=== PATIENT | male | born 1980 | race African-American/Black ===

== ENCOUNTER → 2018-08-28 | Outpatient (CLI) | payer OTHER ==
[2018-08-28 17:09] LABS: Anisocytosis Slight; Basophils # (A) 0.1 k/uL (0-0.2); Basophils % (A) 1 %; Eosinophils # (A) 0.1 k/uL (0-0.7); Eosinophils % (A) 2 %; HCT 42.4 % (39.0-53.0); HGB 13.4 gm/dL (13.0-17.5); Hypochromasia Slight; Lymphocytes # (A) 1.8 k/uL (1.0-4.8); Lymphocytes % (A) 26 %; MCH 30.6 pg (25.0-35.0); MCHC 31.5 g/dL (31.0-37.0); MCV 96.9 fL (80.0-100.0); Mean Platelet Volume 9.4; Monocytes # (A) 0.5 k/uL (0-1.0); Monocytes % (A) 8 %; Neutrophils # (A) 4.2 k/uL (1.3-7.7); Neutrophils % (A) 61 %; Platelet Count 116 k/uL (150-450); RBC 4.38 m/uL (4.30-5.90); RDW 16.2 % (11.5-15.5); WBC 6.9 k/uL (3.8-10.6)
== END | disposition home or self-care (01) ==
LOC: LABWHC1 16:02
PROVIDERS: ATTEND Internal Medicine
DX: D50.9 Iron deficiency anemia, unspecified (principal)
CPT/HCPCS: 36415; 85025

== ENCOUNTER 2021-07-28 18:23 | Emergency (ER) | payer OTHER ==
[2021-07-28 18:35] VITALS: BP 97/56; PULSE 117; RESP 20; TEMP 98.6
--- NOTE | 2021-07-28 19:23 | ED ---
ENT HPI - General Chief complaint: ENT Stated complaint: Nose Bleed Time Seen by Provider: 07/28/21 19:22 Source: patient, EMS, RN notes reviewed Mode of arrival: EMS Limitations: no limitations - History of Present Illness Initial comments: Patient is a 41-year-old male presenting to the emergency Department via ems with complaints of a nosebleed going on for most the day. He denies any injuries or trauma. He denies being on blood thinners. He thinks it's because he has "been working out a lot and doing a lot of pushups." He does admit to drug use. Denies any fevers or chills, no cough or chest congestion no chest pain. Patient has no further complaints at this time. - Related Data Home Medications Medication Instructions Recorded Confirmed ALPRAZolam [Xanax] 1 mg PO TID 04/25/15 04/25/15 atenoloL 25 mg PO DAILY 04/25/15 04/25/15 Allergies Allergy/AdvReac Type Severity Reaction Status Date / Time No Known Allergies Allergy Verified 04/25/15 20:50 Review of Systems ROS Statement: Those systems with pertinent positive or pertinent negative responses have been documented in the HPI. ROS Other: All systems not noted in ROS Statement are negative. Past Medical History Past Medical History: Hypertension History of Any Multi-Drug Resistant Organisms: None Reported Past Surgical History: No Surgical Hx Reported Past Anesthesia/Blood Transfusion Reactions: No Reported Reaction Past Psychological History: Anxiety, Depression, Panic Disorder, PTSD Smoking Status: Current every day smoker Past Alcohol Use History: Daily, Heavy Past Drug Use History: Cocaine, Marijuana - Past Family History Father Family Medical History: Cancer, Diabetes Mellitus Additional Family Medical History / Comment(s): LUNG CANCER Mother Family Medical History: Hypertension Additional Family Medical History / Comment(s): ANXIEY AND PANIC ATTACKS General Exam - General Exam Comments Initial Comments: GENERAL: Patient is well-developed and well-nourished. Patient is nontoxic and in no acute distress. HEAD: Atraumatic, normocephalic. EYES: Pupils equal round and reactive to light, extraocular movements intact, sclera anicteric, conjunctiva are normal. Eyelids were unremarkable. ENT: Nares patent, oropharynx clear without exudates. Moist mucous membranes. No active nose bleed LUNGS: Unlabored respirations. Breath sounds clear to auscultation bilaterally and equal. No wheezes rales or rhonchi. HEART: Regular rate and rhythm without murmurs, rubs or gallops. MUSCULOSKELETAL: Normal extremities with adequate strength and normal range of motion, no pitting or edema. No clubbing or cyanosis. NEUROLOGICAL: Patient is alert and oriented x 3. SKIN: Warm, Dry, normal turgor, no rashes or lesions noted. Limitations: no limitations Course Vital Signs 07/28/21 18:32 Temperature 98.6 F Pulse Rate 117 H Respiratory 20 Rate Blood Pressure 97/56 O2 Sat by Pulse 96 Oximetry Medical Decision Making - Medical Decision Making Patient is a 41-year-old male here with a nosebleed since early this morning. No injuries or trauma. On exam, he has no active bleeding. Patient states it is fine and he wishes to go home. He is not on blood thinners. He is stable for discharge. I recommended placing Vaseline in his nostrils at nighttime for dryness. He is agreeable. Disposition Clinical Impression: Nosebleed Disposition: HOME SELF-CARE Condition: Stable Instructions (If sedation given, give patient instructions): Nosebleed (ED) Additional Instructions: Please return to the Emergency Department if symptoms worsen or any other concerns. Trial of Vaseline in the nostrils at nighttime for dryness. Is patient prescribed a controlled substance at d/c from ED?: No Referrals: Layton Walker MD [Primary Care Provider] - 1-2 days Time of Disposition: 19:23
[2021-07-29 07:32] LABS: Hepatitis B Surface Antigen Nonreactive (Nonreactive); Hepatitis C IgG Antibody Nonreactive (Nonreactive)
== END 2021-07-28 19:38 | disposition home or self-care (01) ==
LOC: EC 18:23
DX: R04.0 Epistaxis (principal); I10 Essential (primary) hypertension; F41.9 Anxiety disorder, unspecified; F32.9 Major depressive disorder, single episode, unspecified; F43.12 Post-traumatic stress disorder, chronic; F17.200 Nicotine dependence, unspecified, uncomplicated; F12.90 Cannabis use, unspecified, uncomplicated
CPT/HCPCS: 36415; 86701; 86704; 86803; 87340; 99283

== ENCOUNTER 2022-02-15 15:23 | Inpatient (IN) | payer OTHER ==
[2022-02-15] MEDS ORDERED: SODIUM CHLORIDE 0.9% 1,000 ML IV STA (15:51)
[2022-02-15] MEDS ORDERED: ONDANSETRON 4 MG/2 ML VIAL IVP STA (15:52)
[2022-02-15] MEDS ORDERED: KETOROLAC 15 MG/ML 1 ML VIAL IVP STA (15:52)
--- NOTE | 2022-02-15 16:21 | XR ---
EXAMINATION TYPE: XR chest 2V DATE OF EXAM: 02/15/2022 COMPARISON: Chest x-ray 01/01/2012 HISTORY: Difficulty breathing, tachycardia TECHNIQUE: Frontal and lateral views of the chest are obtained. FINDINGS: There is no focal air space opacity, pleural effusion, or pneumothorax seen. The cardiac silhouette size is within normal limits. The osseous structures are intact. IMPRESSION: No acute cardiopulmonary process.
--- NOTE | 2022-02-15 16:27 | ED ---
SOB HPI - General Chief Complaint: Shortness of Breath Stated Complaint: Dizziness, Heart racing Time Seen by Provider: 02/15/22 15:39 Source: patient, family, RN notes reviewed Mode of arrival: ambulatory Limitations: no limitations - History of Present Illness Initial Comments: This is a 41-year-old male who presents to the emergency department for vinay rtness of breath and hemoptysis. States that for the last 3 days, he has had shortness of breath, chest pain, nausea, vomiting, and diarrhea. The hemoptysis has been present since symptoms began 3 days ago. Also states that he feels overall very weak and has difficulty ambulating and standing up for long periods of time. He does state that he has chronic liver issues and and he "had his stomach pumped 3 months ago". He reports right upper quadrant pain, states that this isn't worse than usual. However, over the last 3 days he has noticed that the whites of his eyes have appeared more yellow than usual and his urine is much darker. - Related Data Home Medications Medication Instructions Recorded Confirmed Metoclopramide [Reglan] 10 mg PO QID PRN 02/15/22 02/15/22 amLODIPine [Norvasc] 5 mg PO DAILY 02/15/22 02/15/22 Allergies Allergy/AdvReac Type Severity Reaction Status Date / Time No Known Allergies Allergy Verified 02/15/22 22:24 Review of Systems ROS Statement: Those systems with pertinent positive or pertinent negative responses have been documented in the HPI. ROS Other: All systems not noted in ROS Statement are negative. Past Medical History Past Medical History: Hypertension History of Any Multi-Drug Resistant Organisms: None Reported Past Surgical History: No Surgical Hx Reported Past Anesthesia/Blood Transfusion Reactions: No Reported Reaction Past Psychological History: Anxiety, Depression, Panic Disorder, PTSD Smoking Status: Current every day smoker Past Alcohol Use History: Daily, Heavy Past Drug Use History: Cocaine, Marijuana - Past Family History Father Family Medical History: Cancer, Diabetes Mellitus Additional Family Medical History / Comment(s): LUNG CANCER Mother Family Medical History: Hypertension Additional Family Medical History / Comment(s): ANXIEY AND PANIC ATTACKS General Exam Limitations: no limitations General appearance: alert, in no apparent distress Head exam: Present: atraumatic, normocephalic, normal inspection Eye exam: Present: scleral icterus Respiratory exam: Present: normal lung sounds bilaterally. Absent: respiratory distress, wheezes, rales, rhonchi, stridor Cardiovascular Exam: Present: regular rate, normal rhythm, normal heart sounds. Absent: systolic murmur, diastolic murmur, rubs, gallop, clicks GI/Abdominal exam: Present: soft, normal bowel sounds. Absent: distended, tenderness, guarding, rebound, rigid Neurological exam: Present: alert, oriented X3, CN II-XII intact Psychiatric exam: Present: normal affect, normal mood Skin exam: Present: warm, dry, intact, normal color. Absent: rash Course Vital Signs 02/15/22 02/15/22 02/15/22 15:32 16:30 18:24 Temperature 98.6 F 98.6 F Pulse Rate 105 H 93 Respiratory 18 22 18 Rate Blood Pressure 148/83 141/86 O2 Sat by Pulse 98 98 Oximetry 02/15/22 22:46 Temperature 99.9 F H Pulse Rate 95 Respiratory 20 Rate Blood Pressure 136/72 O2 Sat by Pulse 95 Oximetry Medical Decision Making - Medical Decision Making This is a 41-year-old male who presents to the emergency department for hemoptysis, chest pain, shortness of breath, and weakness. Lab work demonstrated thrombocytopenia with platelets of 45. The most recent platelet value from our facility was 116 on 08/28/18. He also has elevated amylase, lipase, AST, and total bilirubin. Lactate is elevated at 2.1 and had increased to 2.3 when rechecked. D-dimer was also elevated at 0.65. CTA of the chest was obtained, this did not identify a pulmonary embolism or other acute process. Given his liver problems, the dark urine, abdominal pain, and scleral icterus, ultrasound of the gallbladder was obtained. This revealed hepatic steatosis with hepatomegaly. No gallbladder abnormalities were identified. I spoke with Dr. Alcantara regarding the patient, and he advised that I speak with medicine and asked if this patient should be admitted given the liver disease and low platelets suggesting an acute process. Medicine agreed to admission and requested pulmonary consult for hemoptysis. Dr. Ornelas will be consulted as well for the liver disease. This case was discussed in detail with the attending ED physician. Presentation, findings, and treatment plan discussed in detail as well. - Lab Data Result diagrams: 02/15/22 17:10 02/15/22 17:10 Lab Results 02/15/22 02/15/22 02/15/22 Range/Units 17:03 17:03 17:10 WBC 7.2 (3.8-10.6) k/uL RBC 3.56 L (4.30-5.90) m/uL Hgb 12.4 L (13.0-17.5) gm/dL Hct 37.8 L (39.0-53.0) % MCV 106.1 H (80.0-100.0) fL MCH 34.7 (25.0-35.0) pg MCHC 32.7 (31.0-37.0) g/dL RDW 15.4 (11.5-15.5) % Plt Count 45 L (150-450) k/uL MPV 11.4 Neutrophils % 60 % Lymphocytes % 25 % Monocytes % 9 % Eosinophils % 2 % Basophils % 1 % Neutrophils # 4.3 (1.3-7.7) k/uL Lymphocytes # 1.8 (1.0-4.8) k/uL Monocytes # 0.6 (0-1.0) k/uL Eosinophils # 0.2 (0-0.7) k/uL Basophils # 0.1 (0-0.2) k/uL Manual Slide Review Performed Macrocytosis Moderate D-Dimer (<0.60) mg/L FEU Sodium (137-145) mmol/L Potassium (3.5-5.1) mmol/L Chloride (98-107) mmol/L Carbon Dioxide (22-30) mmol/L Anion Gap mmol/L BUN (9-20) mg/dL Creatinine (0.66-1.25) mg/dL Est GFR (CKD-EPI)AfAm (>60 ml/min/1.73 sqM) Est GFR (CKD-EPI)NonAf (>60 ml/min/1.73 sqM) Glucose (74-99) mg/dL Lactic Ac Sepsis Rflx Plasma Lactic Acid Jay (0.7-2.0) mmol/L Calcium (8.4-10.2) mg/dL Total Bilirubin (0.2-1.3) mg/dL AST (17-59) U/L ALT (4-49) U/L Alkaline Phosphatase (38-126) U/L Troponin I (0.000-0.034) ng/mL Total Protein (6.3-8.2) g/dL Albumin (3.5-5.0) g/dL Amylase (30-110) U/L Lipase (23-300) U/L Coronavirus (PCR) Not Detected (Not Detectd) Influenza Type A RNA Not Detected (Not Detectd) Influenza Type B (PCR) Not Detected (Not Detectd) 02/15/22 02/15/22 02/15/22 Range/Units 17:10 17:10 17:10 WBC (3.8-10.6) k/uL RBC (4.30-5.90) m/uL Hgb (13.0-17.5) gm/dL Hct (39.0-53.0) % MCV (80.0-100.0) fL MCH (25.0-35.0) pg MCHC (31.0-37.0) g/dL RDW (11.5-15.5) % Plt Count (150-450) k/uL MPV Neutrophils % % Lymphocytes % % Monocytes % % Eosinophils % % Basophils % % Neutrophils # (1.3-7.7) k/uL Lymphocytes # (1.0-4.8) k/uL Monocytes # (0-1.0) k/uL Eosinophils # (0-0.7) k/uL Basophils # (0-0.2) k/uL Manual Slide Review Macrocytosis D-Dimer 0.65 H (<0.60) mg/L FEU Sodium 141 (137-145) mmol/L Potassium 3.8 (3.5-5.1) mmol/L Chloride 106 (98-107) mmol/L Carbon Dioxide 26 (22-30) mmol/L Anion Gap 9 mmol/L BUN 6 L (9-20) mg/dL Creatinine 0.75 (0.66-1.25) mg/dL Est GFR (CKD-EPI)AfAm >90 (>60 ml/min/1.73 sqM) Est GFR (CKD-EPI)NonAf >90 (>60 ml/min/1.73 sqM) Glucose 93 (74-99) mg/dL Lactic Ac Sepsis Rflx Plasma Lactic Acid Jay 2.1 H* (0.7-2.0) mmol/L Calcium 8.2 L (8.4-10.2) mg/dL Total Bilirubin 2.3 H (0.2-1.3) mg/dL AST 149 H (17-59) U/L ALT 43 (4-49) U/L Alkaline Phosphatase 109 (38-126) U/L Troponin I (0.000-0.034) ng/mL Total Protein 7.7 (6.3-8.2) g/dL Albumin 3.4 L (3.5-5.0) g/dL Amylase 206 H (30-110) U/L Lipase 359 H (23-300) U/L Coronavirus (PCR) (Not Detectd) Influenza Type A RNA (Not Detectd) Influenza Type B (PCR) (Not Detectd) 02/15/22 02/15/22 02/15/22 Range/Units 17:10 17:42 20:48 WBC (3.8-10.6) k/uL RBC (4.30-5.90) m/uL Hgb (13.0-17.5) gm/dL Hct (39.0-53.0) % MCV (80.0-100.0) fL MCH (25.0-35.0) pg MCHC (31.0-37.0) g/dL RDW (11.5-15.5) % Plt Count (150-450) k/uL MPV Neutrophils % % Lymphocytes % % Monocytes % % Eosinophils % % Basophils % % Neutrophils # (1.3-7.7) k/uL Lymphocytes # (1.0-4.8) k/uL Monocytes # (0-1.0) k/uL Eosinophils # (0-0.7) k/uL Basophils # (0-0.2) k/uL Manual Slide Review Macrocytosis D-Dimer (<0.60) mg/L FEU Sodium (137-145) mmol/L Potassium (3.5-5.1) mmol/L Chloride (98-107) mmol/L Carbon Dioxide (22-30) mmol/L Anion Gap mmol/L BUN (9-20) mg/dL Creatinine (0.66-1.25) mg/dL Est GFR (CKD-EPI)AfAm (>60 ml/min/1.73 sqM) Est GFR (CKD-EPI)NonAf (>60 ml/min/1.73 sqM) Glucose (74-99) mg/dL Lactic Ac Sepsis Rflx Y Plasma Lactic Acid Jay 2.3 H* (0.7-2.0) mmol/L Calcium (8.4-10.2) mg/dL Total Bilirubin (0.2-1.3) mg/dL AST (17-59) U/L ALT (4-49) U/L Alkaline Phosphatase (38-126) U/L Troponin I 0.021 (0.000-0.034) ng/mL Total Protein (6.3-8.2) g/dL Albumin (3.5-5.0) g/dL Amylase (30-110) U/L Lipase (23-300) U/L Coronavirus (PCR) (Not Detectd) Influenza Type A RNA (Not Detectd) Influenza Type B (PCR) (Not Detectd) - EKG Data EKG shows normal: sinus rhythm EKG Comments: Normal sinus rhythm. Ventricular rate 84 bpm, UT interval 178 ms, QRS duration 98 ms, QTC 432 ms. - Radiology Data Radiology results: report reviewed, image reviewed Disposition Clinical Impression: Hepatic steatosis, Hemoptysis, Thrombocytopenia Disposition: ADMITTED IP TO THIS HOSP
[2022-02-15 17:33] LABS: Basophils # (A) 0.1 k/uL (0-0.2); Basophils % (A) 1 %; Eosinophils # (A) 0.2 k/uL (0-0.7); Eosinophils % (A) 2 %; HCT 37.8 % (39.0-53.0); HGB 12.4 gm/dL (13.0-17.5); Lymphocytes # (A) 1.8 k/uL (1.0-4.8); Lymphocytes % (A) 25 %; MCH 34.7 pg (25.0-35.0); MCHC 32.7 g/dL (31.0-37.0); MCV 106.1 fL (80.0-100.0); Macrocytosis Moderate; Mean Platelet Volume 11.4; Monocytes # (A) 0.6 k/uL (0-1.0); Monocytes % (A) 9 %; Neutrophils # (A) 4.3 k/uL (1.3-7.7); Neutrophils % (A) 60 %; RBC 3.56 m/uL (4.30-5.90); RDW 15.4 % (11.5-15.5); WBC 7.2 k/uL (3.8-10.6)
[2022-02-15 17:38] LABS: ALT 43 U/L (4-49); AST 149 U/L (17-59); African American GFR (CKD) >90 (>60 ml/min/1.73 sqM); Albumin 3.4 g/dL (3.5-5.0); Alkaline Phosphatase 109 U/L (38-126); Amylase 206 U/L (30-110); Anion Gap 9 mmol/L; Blood Urea Nitrogen 6 mg/dL (9-20); Calcium 8.2 mg/dL (8.4-10.2); Carbon Dioxide 26 mmol/L (22-30); Chloride 106 mmol/L (98-107); Glucose 93 mg/dL (74-99); Lipase 359 U/L (23-300); Non-African American GFR(CKD) >90 (>60 ml/min/1.73 sqM); Potassium 3.8 mmol/L (3.5-5.1); Sodium 141 mmol/L (137-145); Total Bilirubin 2.3 mg/dL (0.2-1.3); Total Protein 7.7 g/dL (6.3-8.2)
[2022-02-15] MEDS ORDERED: LORazepam 2 MG/ML INJ IV STA (17:51)
[2022-02-15 18:05] LABS: Platelet Count 45 k/uL (150-450)
--- NOTE | 2022-02-15 19:14 | CT ---
EXAMINATION TYPE: CT chest angio for PE CT DLP: 427.1 mGycm, Automated exposure control for dose reduction was used. DATE OF EXAM: 02/15/2022 6:57 PM COMPARISON: None. CLINICAL INDICATION:Male, 41 years old with history of chest pain, shortness of breath, hemoptysis ; upper abdominal/chest pain TECHNIQUE/CONTRAST: CTA scan of the thorax is performed with IV Contrast, patient injected with 100 mL of Isovue 370, pul monary embolism protocol. MIP images are created and reviewed. FINDINGS: Motion limits evaluation. Pulmonary Artery: There is no evidence for a filling defect within the pulmonary vasculature to sugge st acute pulmonary embolism. The pulmonary artery is of normal size. Lungs/Pleura: No evidence of focal consolidation, pleural effusion or pneumothorax. Airway: Large airways are patent. Heart: Within normal limits for size.. Vasculature: No evidence of aortic aneurysm. Mediastinum: No gross evidence of adenopathy. Musculoskeletal: No acute osseous abnormalities Soft Tissues: Increased density posterior to the nipples bilaterally consistent with gynecomastia. Lower neck: No significant findings. Upper Abdomen: Diffuse low-attenuation to the liver parenchyma. IMPRESSION: 1. No evidence of central pulmonary embolism. Limited evaluation of the subsegmental branches. 2. Hepatic steatosis.
--- NOTE | 2022-02-15 21:03 | US ---
EXAMINATION TYPE: US gallbladder DATE OF EXAM: 02/15/2022 COMPARISON: NONE CLINICAL HISTORY: RUQ pain, scleral icterus . RUQ pain and jaundice EXAM MEASUREMENTS: Liver Length: 21.3 cm Gallbladder Wall: 0.27 cm CBD: 0.48 cm Right Kidney: 12.4 x 4.5 x 5.2 cm Pancreas: Tail obscured by overlying bowel gas Liver: Hepatomegaly with increased echotexture to the parenchyma. Gallbladder: No stones seen Evidence for sonographic Hightower's sign: No CBD: wnl Right Kidney: No hydronephrosis or masses seen IMPRESSION: Hepatic steatosis with hepatomegaly.
[2022-02-15] MEDS ORDERED: NALOXONE 0.4 MG/ML 1 ML VIAL IV PRN (22:11)
[2022-02-15] MEDS ORDERED: ACETAMINOPHEN TAB 325 MG TAB PO PRN (22:11)
[2022-02-15] MEDS ORDERED: ONDANSETRON 4 MG/2 ML VIAL IVP PRN (22:11)
[2022-02-15] MEDS ORDERED: HYDROmorphone 0.5 MG/0.5 ML SYRINGE IVP PRN (22:11)
[2022-02-15] MEDS ORDERED: LORazepam 2 MG/ML INJ IV PRN (22:11)
[2022-02-15] MEDS ORDERED: HYDROmorphone 1 MG/ML 1 ML SYRINGE IVP PRN (22:11)
[2022-02-15] MEDS: SODIUM CHLORIDE 0.9% 1,000 ML IV SCH (22:47)
[2022-02-15 23:22] LABS: Appearance,Urine Clear (Clear); Bilirubin,Urine Negative (Negative); Blood,Urine Negative (Negative); Color,Urine Yellow; Glucose,Urine (UA) Negative (Negative); Ketones,Urine Negative (Negative); Leukocyte Esterase,Urine Negative (Negative); Nitrite,Urine Negative (Negative); Protein,Urine Negative (Negative)
[2022-02-15 23:24] LABS: Specific Gravity,Urine >1.050 (1.001-1.035)
[2022-02-16] MEDS ORDERED: amLODIPine 5 MG TAB PO SCH (09:44)
[2022-02-16 11:42] LABS: Basophils % (A) 1 %; Eosinophils # (A) 0.1 k/uL (0-0.7); Eosinophils % (A) 1 %; HCT 40.4 % (39.0-53.0); HGB 12.8 gm/dL (13.0-17.5); Lymphocytes # (A) 1.2 k/uL (1.0-4.8); Lymphocytes % (A) 19 %; MCH 34.2 pg (25.0-35.0); MCHC 31.6 g/dL (31.0-37.0); MCV 108.3 fL (80.0-100.0); Macrocytosis Marked; Magnesium 1.5 mg/dL (1.6-2.3); Mean Platelet Volume 11.1; Monocytes # (A) 0.5 k/uL (0-1.0); Monocytes % (A) 7 %; Neutrophils # (A) 4.2 k/uL (1.3-7.7); Neutrophils % (A) 68 %; RBC 3.73 m/uL (4.30-5.90); RDW 15.3 % (11.5-15.5); WBC 6.1 k/uL (3.8-10.6)
[2022-02-16] MEDS ORDERED: Magnesium Replacement Protocol 1 EACH MISC MISCELLANE PRN (11:44)
[2022-02-16] MEDS ORDERED: LORazepam 2 MG/ML INJ IV PRN ×3 (11:45)
[2022-02-16] MEDS ORDERED: THIAMINE 100 MG/ML 2 ML VIAL IM STA (11:45)
[2022-02-16 11:54] LABS: Platelet Count 48 k/uL (150-450)
[2022-02-16 11:55] LABS: INR 1.5 (<1.2); Partial Thromboplastin Time 29.9 sec (22.0-30.0)
[2022-02-16] MEDS: HYDROcodone/APAP 5-325MG 1 EACH TAB PO PRN ×2 (12:32→18:14)
[2022-02-16] MEDS: MAGNESIUM SULFATE-D5W PMX 1 GM in DEXTROSE/WATER 1 100ML.BAG IVPB SCH ×2 (12:33→13:28)
[2022-02-16] MEDS: SODIUM CHLORIDE 0.9% 1,000 ML IV SCH (12:34)
[2022-02-16 13:32] LABS: Amphetamine Screen,Urine Not Detected (NotDetected); Barbiturate Screen,Urine Not Detected (NotDetected); Benzodiazepines Screen,Urine Detected (NotDetected); Cocaine Screen,Urine Not Detected (NotDetected); Methadone Screen, Urine Not Detected (NotDetected); Opiate Screen,Urine Detected (NotDetected); Oxycodone Screen, Urine Not Detected (NotDetected); Phencyclidine Screen,Urine Not Detected (NotDetected); Tricyclic Antidepressant,Urine Not Detected (NotDetected); Urn Cannabinoid Scrn Detected (NotDetected)
--- NOTE | 2022-02-16 14:37 | P.CONS ---
History of Present Illness - Reason for Consult Consult date: 02/16/22 Liver disease Requesting physician: Claudette David - Chief Complaint Cough, weakness, hemoptysis - History of Present Illness This is a pleasant 41-year-old -[place] male who presented to the emergency department with complaints of coughing up blood, shortness of breath, weakness and generalized fatigue. States That He's Been Having Symptoms for the Last 3 Days Duration. On admission He Had Blood Work Done That Was Consistent with the Elevated LFTs. He had a gallbladder ultrasound that showed hepatic state ptosis with hepatomegaly. Gastroenterology was consulted for liver disease. Patient also had elevated d-dimer and underwent a CT angiogram of the chest that was negative for pulmonary embolism. However did show hepatic state ptosis. Patient states he has no prior history of liver disease. He does have a long history of alcohol abuse. He currently cut back and states he is drinking 324 ounce beers a day. States that he was admitted to [facility] approximately 6 months ago with ascites and had a paracentesis at that time with approximately 2 L removed. He states he was discharged home on diuretics however did not follow-up. He states he does have some right upper quadrant pain. Still feels somewhat short of breath, very anxious and has a history of anxiety. WBC 6.1 hemoglobin 12.8 hematocrit 40 platelet count 48,000 INR 1.5 Total bilirubin 2.3 AsT 149 ALT 43 alkaline phosphatase 109 amylase 206 lipase 359 Review of Systems REVIEW OF SYSTEMS: CARDIOPULMONARY: No chest pain. Shortness of breath with coughing up blood 3 days. Gastrointestinal: Right upper quadrant abdominal pain. No nausea or vomiting. No hematemesis, coffee-ground emesis. No rectal bleeding, or melena. GENITOURINARY: No dysuria or hematuria. MUSCULOSKELETAL: Reports normal range of motion., Joint pain. SKIN: No rashes. No jaundice. ENDOCRINE: No chills, fevers. No excessive weight gain or loss. No polydipsia or polyuria. PSYCHIATRIC: Anxiety and depression. NEUROLOGY: No change in mental status. Denies dizziness, headache. ENT: Vision unremarkable. CONSTITUTIONAL: No recent weight loss. No fever, chills, night sweats. Past Medical History Past Medical History: GERD/Reflux, Hypertension, Liver Disease Additional Past Medical History / Comment(s): Pt states about 6 months ago he had a liver problem that caused ascities/had paracentesis, past fall with head injury/scalp bleed that caused acute blood loss anemia/transfused History of Any Multi-Drug Resistant Organisms: None Reported Past Surgical History: No Surgical Hx Reported Past Anesthesia/Blood Transfusion Reactions: No Reported Reaction Smoking Status: Current every day smoker - Past Family History Father Family Medical History: Cancer, Diabetes Mellitus Additional Family Medical History / Comment(s): LUNG CANCER. . Mother Family Medical History: Hypertension Additional Family Medical History / Comment(s): ANXIEY AND PANIC ATTACKS Medications and Allergies Home Medications Medication Instructions Recorded Confirmed Type Metoclopramide [Reglan] 10 mg PO QID PRN 02/15/22 02/15/22 History amLODIPine [Norvasc] 5 mg PO DAILY 02/15/22 02/15/22 History Allergies Allergy/AdvReac Type Severity Reaction Status Date / Time No Known Allergies Allergy Verified 02/15/22 22:24 Physical Exam Vitals: Vital Signs Temp Pulse Pulse Resp BP BP Pulse Ox 02/16/22 13:28 98.5 F 75 18 149/91 97 02/16/22 12:23 99.4 F 81 18 152/91 95 02/16/22 11:00 92 18 150/88 98 02/16/22 08:14 99.3 F 90 18 146/93 98 02/16/22 06:18 98.9 F 89 18 158/74 97 02/15/22 22:46 99.9 F H 95 20 136/72 95 02/15/22 18:24 98.6 F 93 18 141/86 98 02/15/22 16:30 22 02/15/22 15:32 98.6 F 105 H 18 148/83 98 Intake and Output 02/15/22 02/16/22 02/16/22 22:59 06:59 14:59 Intake Total 60 Balance 60 Intake: Oral 60 Other: # Voids 1 Weight 100.698 kg 100.698 kg General appearance: The patient is alert, oriented, appears in no acute distress. HET: Head is normocephalic and atraumatic. Conjunctiva pink. Sclera anicteric. Neck: Supple without lymphadenopathy. Trachea midline. Heart: S1 S2. Regular rate and rhythm. Lungs: Clear to auscultation. Abdomen: Soft, right-sided tenderness, hepatomegaly, nondistended with bowel sounds. No guarding or rigidity. Skin: No rashes. No jaundice. Extremities: Normal skin color and turgor. No pedal edema. Neurological: No focal deficits. Alert and oriented x3. Results CBC & Chem 7: 02/16/22 11:10 02/15/22 17:10 Labs: Abnormal Lab Results - Last 24 Hours (Table) 02/15/22 02/15/22 02/15/22 Range/Units 17:10 17:10 17:10 RBC 3.56 L (4.30-5.90) m/uL Hgb 12.4 L (13.0-17.5) gm/dL Hct 37.8 L (39.0-53.0) % MCV 106.1 H (80.0-100.0) fL Plt Count 45 L (150-450) k/uL Macrocytosis PT (9.0-12.0) sec INR (<1.2) D-Dimer 0.65 H (<0.60) mg/L FEU BUN 6 L (9-20) mg/dL Plasma Lactic Acid Jay (0.7-2.0) mmol/L Calcium 8.2 L (8.4-10.2) mg/dL Magnesium (1.6-2.3) mg/dL Total Bilirubin 2.3 H (0.2-1.3) mg/dL AST 149 H (17-59) U/L Albumin 3.4 L (3.5-5.0) g/dL Amylase 206 H (30-110) U/L Lipase 359 H (23-300) U/L Ur Specific [place] (1.001-1.035) Urine Opiates Screen (NotDetected) U Benzodiazepines Scrn (NotDetected) U Marijuana (THC) Screen (NotDetected) 02/15/22 02/15/22 02/15/22 Range/Units 17:10 20:48 23:00 RBC (4.30-5.90) m/uL Hgb (13.0-17.5) gm/dL Hct (39.0-53.0) % MCV (80.0-100.0) fL Plt Count (150-450) k/uL Macrocytosis PT (9.0-12.0) sec INR (<1.2) D-Dimer (<0.60) mg/L FEU BUN (9-20) mg/dL Plasma Lactic Acid Jay 2.1 H* 2.3 H* (0.7-2.0) mmol/L Calcium (8.4-10.2) mg/dL Magnesium (1.6-2.3) mg/dL Total Bilirubin (0.2-1.3) mg/dL AST (17-59) U/L Albumin (3.5-5.0) g/dL Amylase (30-110) U/L Lipase (23-300) U/L Ur Specific [place] >1.050 H (1.001-1.035) Urine Opiates Screen (NotDetected) U Benzodiazepines Scrn (NotDetected) U Marijuana (THC) Screen (NotDetected) 02/15/22 02/16/22 02/16/22 Range/Units 23:41 11:10 11:10 RBC 3.73 L (4.30-5.90) m/uL Hgb 12.8 L (13.0-17.5) gm/dL Hct (39.0-53.0) % MCV 108.3 H (80.0-100.0) fL Plt Count 48 L (150-450) k/uL Macrocytosis Marked A PT (9.0-12.0) sec INR (<1.2) D-Dimer (<0.60) mg/L FEU BUN (9-20) mg/dL Plasma Lactic Acid Jay 2.1 H* (0.7-2.0) mmol/L Calcium (8.4-10.2) mg/dL Magnesium 1.5 L (1.6-2.3) mg/dL Total Bilirubin (0.2-1.3) mg/dL AST (17-59) U/L Albumin (3.5-5.0) g/dL Amylase (30-110) U/L Lipase (23-300) U/L Ur Specific [place] (1.001-1.035) Urine Opiates Screen (NotDetected) U Benzodiazepines Scrn (NotDetected) U Marijuana (THC) Screen (NotDetected) 02/16/22 02/16/22 Range/Units 11:10 13:19 RBC (4.30-5.90) m/uL Hgb (13.0-17.5) gm/dL Hct (39.0-53.0) % MCV (80.0-100.0) fL Plt Count (150-450) k/uL Macrocytosis PT 15.0 H (9.0-12.0) sec INR 1.5 H (<1.2) D-Dimer (<0.60) mg/L FEU BUN (9-20) mg/dL Plasma Lactic Acid Jay (0.7-2.0) mmol/L Calcium (8.4-10.2) mg/dL Magnesium (1.6-2.3) mg/dL Total Bilirubin (0.2-1.3) mg/dL AST (17-59) U/L Albumin (3.5-5.0) g/dL Amylase (30-110) U/L Lipase (23-300) U/L Ur Specific [place] (1.001-1.035) Urine Opiates Screen Detected H (NotDetected) U Benzodiazepines Scrn Detected H (NotDetected) U Marijuana (THC) Screen Detected H (NotDetected) Comments: Gallbladder ultrasound: Hepatic state ptosis with hepatomegaly Chest CT angiogram: No evidence of central pulmonary embolism. Limited evaluation of subsegmental branches. Hepatic steatosis Assessment and Plan (1) Liver disease Narrative/Plan: A 11-year-old with a history of significant alcohol abuse for many years. States he has been trying to cut back and is down to approximately 324 ounce beers a day. Denies any previous history of known liver disease however does state that he was admitted to [facility] about 6 months ago and underwent a paracentesis with 2 L of fluid removed. He also states he was started on diuretics at that time however did not follow-up. He's had no further abdominal swelling. He was noted to have elevated LFTs consistent with alcoholic liver disease. We'll continue to monitor LFTs. Discussed with patient importance of alcohol abstinence. Current Visit: Yes Status: Acute Code(s): K76.9 - LIVER DISEASE, UNSPECIFIED SNOMED Code(s): 343001188 (2) Alcohol abuse Current Visit: Yes Status: Acute Code(s): F10.10 - ALCOHOL ABUSE, UNCOMPLICATED SNOMED Code(s): 69767843 (3) Hemoptysis Current Visit: Yes Status: Acute Code(s): R04.2 - HEMOPTYSIS SNOMED Code(s): 40361429 (4) Thrombocytopenia Narrative/Plan: Related to underlying liver disease Current Visit: Yes Status: Acute Code(s): D69.6 - THROMBOCYTOPENIA, UNSPECIFIED SNOMED Code(s): 870012682 Plan: 1. Continue symptomatic and supportive care 2. Close surveillance for withdrawal symptoms 3. Recommend alcohol abstinence 4. Recommend outpatient follow-up with gastroenterology 5. Repeat CMP Thank you for this consultation, we'll continue to follow. Dr. Mando Ornelas I agree with the dictator's note, documented as a scribe by Minal Medel.
[2022-02-16] MEDS ORDERED: amLODIPine 5 MG TAB PO STA (15:29)
--- NOTE | 2022-02-16 15:30 | P.HPIM ---
History of Present Illness H&P Date: 02/16/22 This is a 41 year old male who presents to the emergency room with complaints of shortness of breath and hemoptysis. This is ongoing for the last 2-3 days, he also reports nausea vomiting and diarrhea. Today he complains of right upper quadrant pain that is normal for him, however this is significant tenderness with palpation. He has also noted that his urine is darker than usual and the whites of his eyes appeared more yellow. Patient has chronic liver issues which states was diagnosed 6 months ago. He was evaluated by dr Keny Ornelas at [facility] where he underwent paracentesis and had about 2 L of fluid removed. He has not followed up with GI in the office. Additional medical history includes hy pertension, anxiety, depression, panic disorder, PTSD, is a daily smoker, history of chronic heavy binge drinking. States he drinks 4 24 oz beers per day as well as 4 shots or mixed drinks. States his last drink was yesterday morning. He has not been hospitalized for acute alcohol withdrawal before, however today he is feeling anxious and shaky, he is also slightly tachycardic. Covid, influenza A/B not detected. Patient does have a low grade fever of 99.9, heart rate 90, blood pressure 146/93, 98% on room air. Patient is in the hospital consults placed to pulmonary services for hemoptysis and GI services for evaluation of liver disease. He is started on CIWA protocol. Labs on admission showing white count 7.2, hemoglobin 12.4, MCV 106.1, platelet count is 45, d-dimer elevated 0.65. Lactic acid mildy elevated to 2.1 which is resolved now 1.9, troponin negative Total bili 2.3, AST 149, ALT 43, alk phos 19, amylase 206, lipase 359 Urinalysis with specific gravity of >1.050 EKG showing normal sinus rhythm there is no ST or T wave abnormalities noted, heart rate of 84, QT interval 432 Chest x-ray showing no acute process. Chest CTA showing no evidence of central pulmonary embolism, there is limited evaluation of the subsegmental branches, there is hepatic steatosis. Gallbladder ultrasound showed hepatic steatosis and hepatomegaly. No gallstones noted. REVIEW OF SYSTEMS: CONSTITUTIONAL: No fever, no malaise, no fatigue. HEENT: No recent visual problems or hearing problems. Denied any sore throat. CARDIOVASCULAR: No chest pain, orthopnea, PND, no palpitations, no syncope. PULMONARY: Reports coughing up blood, shortness of breath. GASTROINTESTINAL: Reports RUQ abdominal pain, reports nausea, vomiting, and diarrhea. No blood in the stool. NEUROLOGICAL: No headaches, no weakness, no numbness. HEMATOLOGICAL: Denies any bleeding or petechiae. GENITOURINARY: Denies any burning micturition, frequency, or urgency. MUSCULOSKELETAL/RHEUMATOLOGICAL: Denies any joint pain, swelling, or any muscle pain. ENDOCRINE: Denies any polyuria or polydipsia. The rest of the 14-point review of systems is negative. PHYSICAL EXAMINATION: GENERAL: The patient is alert and oriented x3, not in any acute distress. Well developed, well nourished. HEENT: Pupils are round and equally reacting to light. EOMI. No scleral icterus. No conjunctival pallor. Normocephalic, atraumatic. No pharyngeal erythema. No thyromegaly. CARDIOVASCULAR: S1 and S2 present. No murmurs, rubs, or gallops. PULMONARY: Chest is clear to auscultation, no wheezing or crackles. ABDOMEN: Soft, tender RUQ with guarding, nondistended, normoactive bowel sounds. No palpable organomegaly. MUSCULOSKELETAL: No joint swelling or deformity. EXTREMITIES: No cyanosis, clubbing, or pedal edema. NEUROLOGICAL: Gross neurological examination did not reveal any focal deficits. SKIN: No rashes. Assessment and plan Assessment Right upper quadrant abdominal pain with associated nausea, vomiting, diarrhea secondary to alcoholic liver disease Acute alcoholic hepatitis with elevated LFT's, Thrombocytopenia Hypomagnesemia Chronic alcohol abuse Hepatic steatosis Hypertension Anxiety History of PTSD Daily tobacco use DVT Prophylaxis deferred due to decreased platelet count GI Prophylaxis Full Code Plan GI consultation Monitor LFT's [facility] protocol Monitor for acute alcohol withdrawal Increase amlodipine Replace magnesium Urine drug toxicology The impression and plan of care has been dictated by Sally Doss Nurse Practitioner as directed. Dr. Rosemarie MD I have performed a history and physical examination and medical decision making of this patient, discussed the same with the dictator, and agree with the dictators assessment and plan as written, documented as a scribe. Based on total visit time, I have performed more than 50% of this visit. Past Medical History Past Medical History: Hypertension History of Any Multi-Drug Resistant Organisms: None Reported Past Surgical History: No Surgical Hx Reported Past Anesthesia/Blood Transfusion Reactions: No Reported Reaction Past Psychological History: Anxiety, Depression, Panic Disorder, PTSD Smoking Status: Current every day smoker Past Alcohol Use History: Daily, Heavy Past Drug Use History: Cocaine, Marijuana - Past Family History Father Family Medical History: Cancer, Diabetes Mellitus Additional Family Medical History / Comment(s): LUNG CANCER Mother Family Medical History: Hypertension Additional Family Medical History / Comment(s): ANXIEY AND PANIC ATTACKS Medications and Allergies Home Medications Medication Instructions Recorded Confirmed Type Metoclopramide [Reglan] 10 mg PO QID PRN 02/15/22 02/15/22 History amLODIPine [Norvasc] 5 mg PO DAILY 02/15/22 02/15/22 History Allergies Allergy/AdvReac Type Severity Reaction Status Date / Time No Known Allergies Allergy Verified 02/15/22 22:24 Physical Exam Vitals: Vital Signs Temp Pulse Resp BP Pulse Ox 02/16/22 08:14 99.3 F 90 18 146/93 98 02/16/22 06:18 98.9 F 89 18 158/74 97 02/15/22 22:46 99.9 F H 95 20 136/72 95 02/15/22 18:24 98.6 F 93 18 141/86 98 02/15/22 16:30 22 02/15/22 15:32 98.6 F 105 H 18 148/83 98 Intake and Output 02/15/22 02/16/22 02/16/22 22:59 06:59 14:59 Other: Weight 100.698 kg Results CBC & Chem 7: 02/16/22 11:10 02/15/22 17:10 Labs: Abnormal Lab Results - Last 24 Hours (Table) 02/15/22 02/15/22 02/15/22 Range/Units 17:10 17:10 17:10 RBC 3.56 L (4.30-5.90) m/uL Hgb 12.4 L (13.0-17.5) gm/dL Hct 37.8 L (39.0-53.0) % MCV 106.1 H (80.0-100.0) fL Plt Count 45 L (150-450) k/uL D-Dimer 0.65 H (<0.60) mg/L FEU BUN 6 L (9-20) mg/dL Plasma Lactic Acid Jay (0.7-2.0) mmol/L Calcium 8.2 L (8.4-10.2) mg/dL Total Bilirubin 2.3 H (0.2-1.3) mg/dL AST 149 H (17-59) U/L Albumin 3.4 L (3.5-5.0) g/dL Amylase 206 H (30-110) U/L Lipase 359 H (23-300) U/L Ur Specific [place] (1.001-1.035) 02/15/22 02/15/22 02/15/22 Range/Units 17:10 20:48 23:00 RBC (4.30-5.90) m/uL Hgb (13.0-17.5) gm/dL Hct (39.0-53.0) % MCV (80.0-100.0) fL Plt Count (150-450) k/uL D-Dimer (<0.60) mg/L FEU BUN (9-20) mg/dL Plasma Lactic Acid Jay 2.1 H* 2.3 H* (0.7-2.0) mmol/L Calcium (8.4-10.2) mg/dL Total Bilirubin (0.2-1.3) mg/dL AST (17-59) U/L Albumin (3.5-5.0) g/dL Amylase (30-110) U/L Lipase (23-300) U/L Ur Specific [place] >1.050 H (1.001-1.035) 02/15/22 Range/Units 23:41 RBC (4.30-5.90) m/uL Hgb (13.0-17.5) gm/dL Hct (39.0-53.0) % MCV (80.0-100.0) fL Plt Count (150-450) k/uL D-Dimer (<0.60) mg/L FEU BUN (9-20) mg/dL Plasma Lactic Acid Jay 2.1 H* (0.7-2.0) mmol/L Calcium (8.4-10.2) mg/dL Total Bilirubin (0.2-1.3) mg/dL AST (17-59) U/L Albumin (3.5-5.0) g/dL Amylase (30-110) U/L Lipase (23-300) U/L Ur Specific [place] (1.001-1.035) Assessment and Plan Time with Patient: Greater than 30
[2022-02-16] MEDS: THIAMINE 100 MG TAB PO SCH (18:14)
[2022-02-16] MEDS ORDERED: LORazepam 1 MG TAB PO STA (18:36)
--- NOTE | 2022-02-16 18:51 | P.CNPUL ---
History of Present Illness Consult date: 02/16/22 Reason for consult: dyspnea, cough Chief complaint: Hemoptysis for 3 days History of present illness: Patient is a 41-year-old male with extensive history of smoking and nicotine use patient also has extensive alcohol consumption with prior history of ascites requiring large volume paracentesis about 6 months ago at [facility]. Patient came into the hospital with 3 day history of shortness of breath cough and hemoptysis with [place] chunks of blood has been feeling very weak diffuse aches and pains throughout the bodies are present denies any chest pain denies any similar episode in the past prior history significant for hypertension. On arrival his lactic acid is mildly elevated of 2.1, PT/INR 15/1.9 white cell count is 6100 hemoglobin and hematocrit is 12 and 40 platelet count of only 48,000. Urine is positive for opiates benzodiazepine and marijuana. Magnesium is 1.5, chest x-ray is unremarkable no active cardiopulmonary process seen. Computed tomography scan of the chest with contr ast negative for pulmonary embolism no focal consolidation or pleural effusion pneumothorax in the airways are patent, patient noted to have gynecomastia on computed tomography scan. GI have evaluated the patient placed patient on IV Protonix Review of Systems All systems: negative Past Medical History Past Medical History: Hypertension Additional Past Medical History / Comment(s): Pt states about 6 months ago he had a liver problem that caused ascities/had paracentesis, past fall with head injury/scalp bleed that caused acute blood loss anemia/transfused History of Any Multi-Drug Resistant Organisms: None Reported Past Surgical History: No Surgical Hx Reported Past Anesthesia/Blood Transfusion Reactions: No Reported Reaction Past Psychological History: Anxiety, Depression, Panic Disorder, PTSD Smoking Status: Current every day smoker Past Alcohol Use History: Daily, Heavy Past Drug Use History: Cocaine, Marijuana - Past Family History Father Family Medical History: Cancer, Diabetes Mellitus Additional Family Medical History / Comment(s): LUNG CANCER Mother Family Medical History: Hypertension Additional Family Medical History / Comment(s): ANXIEY AND PANIC ATTACKS Medications and Allergies Home Medications Medication Instructions Recorded Confirmed Type Metoclopramide [Reglan] 10 mg PO QID PRN 02/15/22 02/15/22 History amLODIPine [Norvasc] 5 mg PO DAILY 02/15/22 02/15/22 History Allergies Allergy/AdvReac Type Severity Reaction Status Date / Time No Known Allergies Allergy Verified 02/15/22 22:24 Physical Exam Vitals: Vital Signs Temp Pulse Pulse Pulse Resp BP BP 02/16/22 15:00 98.8 F 84 18 152/81 02/16/22 13:28 98.5 F 75 18 149/91 02/16/22 12:23 99.4 F 81 18 152/91 02/16/22 11:00 92 18 150/88 02/16/22 08:14 99.3 F 90 18 146/93 02/16/22 06:18 98.9 F 89 18 158/74 02/15/22 22:46 99.9 F H 95 20 136/72 Pulse Ox 02/16/22 15:00 98 02/16/22 13:28 97 02/16/22 12:23 95 02/16/22 11:00 98 02/16/22 08:14 98 02/16/22 06:18 97 02/15/22 22:46 95 Intake and Output 02/16/22 02/16/22 02/16/22 06:59 14:59 22:59 Intake Total 178 Balance 178 Intake: Oral 178 Other: # Voids 1 2 Weight 100.698 kg - Constitutional General appearance: average body habitus, cooperative, disheveled - EENT Eyes: EOMI, PERRLA ENT: normal oropharynx Ears: bilateral: normal - Neck Carotids: bilateral: upstroke normal - Respiratory Respiratory: bilateral: CTA - Cardiovascular Rhythm: regular Heart sounds: normal: S1, S2 - Gastrointestinal General gastrointestinal: soft - Integumentary Integumentary: normal turgor - Neurologic Neurologic: CNII-XII intact - Musculoskeletal Musculoskeletal: gait normal, generalized weakness, strength equal bilaterally - Psychiatric Psychiatric: A&O x's 3, appropriate affect, intact judgment & insight Results - Laboratory Findings CBC and BMP: 02/16/22 11:10 02/15/22 17:10 PT/INR, D-dimer PT 15.0 sec (9.0-12.0) H 02/16/22 11:10 INR 1.5 (<1.2) H 02/16/22 11:10 D-Dimer 0.65 mg/L FEU (<0.60) H 02/15/22 17:10 Abnormal lab findings: Abnormal Labs 02/15/22 02/15/22 02/15/22 17:10 17:10 17:10 RBC 3.56 L Hgb 12.4 L Hct 37.8 L MCV 106.1 H Plt Count 45 L Macrocytosis PT INR D-Dimer 0.65 H BUN 6 L Plasma Lactic Acid Jay Calcium 8.2 L Magnesium Total Bilirubin 2.3 H AST 149 H Albumin 3.4 L Amylase 206 H Lipase 359 H Ur Specific [place] Urine Opiates Screen U Benzodiazepines Scrn U Marijuana (THC) Screen 02/15/22 02/15/22 02/15/22 17:10 20:48 23:00 RBC Hgb Hct MCV Plt Count Macrocytosis PT INR D-Dimer BUN Plasma Lactic Acid Jay 2.1 H* 2.3 H* Calcium Magnesium Total Bilirubin AST Albumin Amylase Lipase Ur Specific [place] >1.050 H Urine Opiates Screen U Benzodiazepines Scrn U Marijuana (THC) Screen 02/15/22 02/16/22 02/16/22 23:41 11:10 11:10 RBC 3.73 L Hgb 12.8 L Hct MCV 108.3 H Plt Count 48 L Macrocytosis Marked A PT INR D-Dimer BUN Plasma Lactic Acid Jay 2.1 H* Calcium Magnesium 1.5 L Total Bilirubin AST Albumin Amylase Lipase Ur Specific [place] Urine Opiates Screen U Benzodiazepines Scrn U Marijuana (THC) Screen 02/16/22 02/16/22 11:10 13:19 RBC Hgb Hct MCV Plt Count Macrocytosis PT 15.0 H INR 1.5 H D-Dimer BUN Plasma Lactic Acid Jay Calcium Magnesium Total Bilirubin AST Albumin Amylase Lipase Ur Specific [place] Urine Opiates Screen Detected H U Benzodiazepines Scrn Detected H U Marijuana (THC) Screen Detected H - Diagnostic Findings Chest x-ray: report reviewed, image reviewed (Finding as noted above) CT scan - chest: report reviewed, image reviewed Assessment and Plan Assessment: Hemoptysis versus hematemesis Chronic alcoholic liver disease Thrombocytopenia Extensive history of smoking and continue Extensive history of alcohol consumption Mild degree of coagulopathy appeared to be related to chronic liver disease Plan: We will repeat CBC tomorrow along with coag Keep patient nothing by mouth Bronchoscopy and airway inspection for tomorrow if no significant drop in thrombocytopenia or worsening of coagulopathy noted Patient and significant others updated and explained about the pathophysiology at length Time with Patient: Greater than 30
[2022-02-16] MEDS: PANTOPRAZOLE 40 MG/10 ML VIAL IVP SCH (19:28)
[2022-02-17] MEDS: HYDROcodone/APAP 5-325MG 1 EACH TAB PO PRN ×4 (01:10→21:16)
[2022-02-17] MEDS: SODIUM CHLORIDE 0.9% 1,000 ML IV SCH ×2 (02:04→10:40)
[2022-02-17] MEDS: PANTOPRAZOLE 40 MG/10 ML VIAL IVP SCH ×2 (08:14→21:16)
[2022-02-17] MEDS: THIAMINE 100 MG TAB PO SCH ×2 (08:16→16:49)
[2022-02-17] MEDS: amLODIPine 10 MG TAB PO SCH (08:16)
[2022-02-17 09:43] LABS: INR 1.33 (0.90-1.11); Prothrombin Time 14.8 sec (9.9-11.9)
[2022-02-17 10:26] LABS: African American GFR (CKD) 124.3 (60.0-200.0); Albumin 3.2 g/dL (3.8-4.9); Albumin/Globulin Ratio 0.86 (1.60-3.17); Anion Gap 8.5 mmol/L (10.00-18.00); Blood Urea Nitrogen 5.4 mg/dL (9.0-27.0); Calcium 8.5 mg/dL (8.7-10.3); Carbon Dioxide 25.5 mmol/L (20.0-27.5); Globulin 3.7 g/dL (1.6-3.3); Non-African American GFR(CKD) 107.2 (60.0-200.0); Potassium 3.5 mmol/L (3.5-5.5); Total Bilirubin 2.2 mg/dL (0.30-1.20); Total Protein 6.9 g/dL (6.2-8.2)
[2022-02-17 11:24] LABS: HCT 39.4 % (39.6-50.0); HGB 12.4 g/dL (13.0-17.0); MCH 33.6 pg (27.0-32.0); MCHC 31.5 g/dL (32.0-37.0); MCV 106.8 fL (80.0-97.0); Mean Platelet Volume 13.8 fL (9.5-12.2); NRBC Per 100 WBC 0.3 /100 WBCS (0.0-0.0); Platelet Count 39 X 10*3/uL (140-440); RBC 3.69 X 10*6/uL (4.40-5.60); RDW 15.6 % (11.5-14.5); WBC 6.59 X 10*3/uL (4.50-10.00)
[2022-02-17 11:42] LABS: Basophils # (A) 0.05 X 10*3/uL (0.00-0.10); Basophils % (A) 0.8 %; Eosinophils # (A) 0.19 X 10*3/uL (0.04-0.35); Eosinophils % (A) 2.9 %; Immature Grans, Automated 0.3 %; Immature Platelet Fraction 12.7 % (1.1-6.1); Lymphocytes # (A) 1.28 X 10*3/uL (0.90-5.00); Lymphocytes % (A) 19.4 %; Monocytes % (A) 16.7 %; Neutrophils # (A) 3.95 X 10*3/uL (1.80-7.70); Neutrophils % (A) 59.9 %
--- NOTE | 2022-02-17 13:29 | P.PN ---
Subjective Progress Note Date: 02/17/22 Principal diagnosis: Alcoholic Liver disease Patient is a 41-year-old male who presented to the emergency department with complaints of shortness of breath and cough. He was noted to have elevated LFTs. Underwent ultrasound of the gallbladder with findings of hepatic steatosis with hepatomegaly. Patient has a significant history of alcohol abuse. He was seen and examined today. States cough is somewhat better. No further coughing up blood. Patient supposed to undergo bronchoscopy possibly today if platelets stable. Repeat labs today show WBC 6.5 hemoglobin 12.4 hem atocrit 39 platelet count 39,000 INR 1.3 total bilirubin 2.2 AST 95 ALT 34 alk phos 104 lipase 67. Patient states he still has some right-sided abdominal discomfort. No nausea or vomiting. Objective - Vital Signs Vital signs: Vital Signs Temp 98.4 F 02/17/22 07:00 Pulse 83 02/17/22 07:00 Resp 18 02/17/22 08:50 BP 156/83 02/17/22 07:00 Pulse Ox 100 02/17/22 07:00 Intake & Output 02/16/22 02/17/22 02/17/22 18:59 06:59 18:59 Intake Total 178 Output Total 200 -22 Weight 100.698 kg Intake: Oral 178 Output: Urine 200 Other: # Voids 2 2 - Exam General appearance: The patient is alert, oriented, appears in no acute distress. HET: Head is normocephalic and atraumatic. Conjunctiva pink. Sclera anicteric. Neck: Supple without lymphadenopathy. Abdomen: Soft, right-sided tenderness, hepatomegaly, nondistended with bowel sounds. No guarding or rigidity. Extremities: Normal skin color and turgor. No pedal edema Skin: No rashes, no jaundice Neurological: No focal deficits. Alert and oriented x3. - Labs CBC & Chem 7: 02/17/22 06:00 02/17/22 06:00 Labs: Abnormal Lab Results - Last 24 Hours (Table) 02/16/22 02/16/22 02/17/22 Range/Units 11:10 13:19 06:00 RBC (4.40-5.60) X 10*6/uL Hgb (13.0-17.0) g/dL Hct (39.6-50.0) % MCV (80.0-97.0) fL MCH (27.0-32.0) pg MCHC (32.0-37.0) g/dL RDW (11.5-14.5) % Plt Count (140-440) X 10*3/uL Plt Count Comment MPV (9.5-12.2) fL Absolute Nucleated RBC (0.00-0.00) X 10*3/uL Monocytes # (0.20-1.00) X 10*3/uL NRBC/100 WBC Diff (0.0-0.0) /100 WBCS Immature Plt Fraction (1.1-6.1) % PT (9.9-11.9) sec INR (0.90-1.11) Anion Gap 8.50 L (10.00-18.00) mmol/L BUN 5.4 L (9.0-27.0) mg/dL BUN/Creatinine Ratio 6.00 L (12.00-20.00) Ratio Calcium 8.5 L (8.7-10.3) mg/dL Total Bilirubin 2.20 H (0.30-1.20) mg/dL AST 95 H (14-35) U/L Albumin 3.2 L (3.8-4.9) g/dL Globulin 3.7 H (1.6-3.3) g/dL Albumin/Globulin Ratio 0.86 L (1.60-3.17) g/dL Lipase 67 H (14-60) U/L Vitamin B12 1406.0 H (200.0-944.0) pg/mL Urine Opiates Screen Detected H (NotDetected) U Benzodiazepines Scrn Detected H (NotDetected) U Marijuana (THC) Screen Detected H (NotDetected) 02/17/22 02/17/22 Range/Units 06:00 06:00 RBC 3.69 L (4.40-5.60) X 10*6/uL Hgb 12.4 L (13.0-17.0) g/dL Hct 39.4 L (39.6-50.0) % MCV 106.8 H (80.0-97.0) fL MCH 33.6 H (27.0-32.0) pg MCHC 31.5 L (32.0-37.0) g/dL RDW 15.6 H (11.5-14.5) % Plt Count 39 L (140-440) X 10*3/uL Plt Count Comment A MPV 13.8 H (9.5-12.2) fL Absolute Nucleated RBC 0.02 H (0.00-0.00) X 10*3/uL Monocytes # 1.10 H (0.20-1.00) X 10*3/uL NRBC/100 WBC Diff 0.3 H (0.0-0.0) /100 WBCS Immature Plt Fraction 12.7 H (1.1-6.1) % PT 14.8 H (9.9-11.9) sec INR 1.33 H (0.90-1.11) Anion Gap (10.00-18.00) mmol/L BUN (9.0-27.0) mg/dL BUN/Creatinine Ratio (12.00-20.00) Ratio Calcium (8.7-10.3) mg/dL Total Bilirubin (0.30-1.20) mg/dL AST (14-35) U/L Albumin (3.8-4.9) g/dL Globulin (1.6-3.3) g/dL Albumin/Globulin Ratio (1.60-3.17) g/dL Lipase (14-60) U/L Vitamin B12 (200.0-944.0) pg/mL Urine Opiates Screen (NotDetected) U Benzodiazepines Scrn (NotDetected) U Marijuana (THC) Screen (NotDetected) Assessment and Plan (1) Liver disease Narrative/Plan: A 11-year-old with a history of significant alcohol abuse for many years. States he has been trying to cut back and is down to approximately 324 ounce beers a day. Denies any previous history of known liver disease however does state that he was admitted to [facility] about 6 months ago and underwent a paracentesis with 2 L of fluid removed. He also states he was started on diuretics at that time however did not follow-up. He's had no further abdominal swelling. He was noted to have elevated LFTs consistent with alcoholic liver disease. We'll continue to monitor LFTs. Discussed with patient importance of alcohol abstinence. Current Visit: Yes Status: Acute Code(s): K76.9 - LIVER DISEASE, UNSPECIFIED SNOMED Code(s): 287870535 (2) Alcohol abuse Current Visit: Yes Status: Acute Code(s): F10.10 - ALCOHOL ABUSE, UNCOMPLICATED SNOMED Code(s): 51521612 (3) Hemoptysis Current Visit: Yes Status: Acute Code(s): R04.2 - HEMOPTYSIS SNOMED Code(s): 08956300 (4) Thrombocytopenia Narrative/Plan: Related to underlying liver disease. platelets ordered Current Visit: Yes Status: Acute Code(s): D69.6 - THROMBOCYTOPENIA, UNSPECIFIED SNOMED Code(s): 160636440 Plan: 1. Continue symptomatic and supportive care 2. Close surveillance for withdrawal symptoms 3. Recommend alcohol abstinence 4. Recommend outpatient follow-up with gastroenterology 5. CBC, CMP daily 6. Agree with platelet transfusion Thank you for this consultation, we'll continue to follow. Dr. Mando Ornelas I agree with the dictator's note, documented as a scribe by Minal Medel.
--- NOTE | 2022-02-17 14:39 | P.PN ---
Subjective Progress Note Date: 02/17/22 Principal diagnosis: Hemoptysis versus hematemesis Chronic alcoholic liver disease Thrombocytopenia Extensive history of smoking and continue Extensive history of alcohol consumption Mild degree of coagulopathy appeared to be related to chronic liver disease 02/17/2022, patient seen eval reexamined during on's labs reviewed medications in reviewed, no active hemoptysis has been noted however patient is cuffing brownish sputum to white sputum, patient INR improved but however platelet drop down to 39,000, transfusion and platelet not available procedure of bronchoscopy have been canceled, will do the platelet transfusion repeat platelet levels tomorrow anticipated bronchoscopy on Tuesday Patient is a 41-year-old male with extensive history of smoking and nicotine use patient also has extensive alcohol consumption with prior history of ascites requiring large volume paracentesis about 6 months ago at [facility]. Patient came into the hospital with 3 day history of shortness of breath cough and hemoptysis with [place] chunks of blood has been feeling very weak diffuse aches and pains throughout the bodies are present denies any chest pain denies any similar episode in the past prior history significant for hypertension. On arrival his lactic acid is mildly elevated of 2.1, PT/INR 15/1.9 white cell count is 6100 hemoglobin and hematocrit is 12 and 40 platelet count of only 48,000. Urine is positive for opiates benzodiazepine and marijuan a. Magnesium is 1.5, chest x-ray is unremarkable no active cardiopulmonary process seen. Computed tomography scan of the chest with contrast negative for pulmonary embolism no focal consolidation or pleural effusion pneumothorax in the airways are patent, patient noted to have gynecomastia on computed tomography scan. GI have evaluated the patient placed patient on IV Protonix Objective - Vital Signs Vital signs: Vital Signs Temp 98.4 F 02/17/22 07:00 Pulse 83 02/17/22 07:00 Resp 18 02/17/22 08:50 BP 156/83 02/17/22 07:00 Pulse Ox 100 02/17/22 07:00 Intake & Output 02/16/22 02/17/22 02/17/22 18:59 06:59 18:59 Intake Total 178 Output Total 200 -22 Weight 100.698 kg Intake: Oral 178 Output: Urine 200 Other: # Voids 2 2 - Exam - Constitutional General appearance: average body habitus, cooperative, disheveled - EENT Eyes: EOMI, PERRLA ENT: normal oropharynx Ears: bilateral: normal - Neck Carotids: bilateral: upstroke normal - Respiratory Respiratory: bilateral: CTA - Cardiovascular Rhythm: regular Heart sounds: normal: S1, S2 - Gastrointestinal General gastrointestinal: soft - Integumentary Integumentary: normal turgor - Neurologic Neurologic: CNII-XII intact - Musculoskeletal Musculoskeletal: gait normal, generalized weakness, strength equal bilaterally - Psychiatric Psychiatric: A&O x's 3, appropriate affect, intact judgment & insight - Labs CBC & Chem 7: 02/17/22 06:00 02/17/22 06:00 Labs: Abnormal Lab Results - Last 24 Hours (Table) 02/16/22 02/17/22 02/17/22 Range/Units 11:10 06:00 06:00 RBC 3.69 L (4.40-5.60) X 10*6/uL Hgb 12.4 L (13.0-17.0) g/dL Hct 39.4 L (39.6-50.0) % MCV 106.8 H (80.0-97.0) fL MCH 33.6 H (27.0-32.0) pg MCHC 31.5 L (32.0-37.0) g/dL RDW 15.6 H (11.5-14.5) % Plt Count 39 L (140-440) X 10*3/uL Plt Count Comment A MPV 13.8 H (9.5-12.2) fL Absolute Nucleated RBC 0.02 H (0.00-0.00) X 10*3/uL Monocytes # 1.10 H (0.20-1.00) X 10*3/uL NRBC/100 WBC Diff 0.3 H (0.0-0.0) /100 WBCS Immature Plt Fraction 12.7 H (1.1-6.1) % PT (9.9-11.9) sec INR (0.90-1.11) Anion Gap 8.50 L (10.00-18.00) mmol/L BUN 5.4 L (9.0-27.0) mg/dL BUN/Creatinine Ratio 6.00 L (12.00-20.00) Ratio Calcium 8.5 L (8.7-10.3) mg/dL Total Bilirubin 2.20 H (0.30-1.20) mg/dL AST 95 H (14-35) U/L Albumin 3.2 L (3.8-4.9) g/dL Globulin 3.7 H (1.6-3.3) g/dL Albumin/Globulin Ratio 0.86 L (1.60-3.17) g/dL Lipase 67 H (14-60) U/L Vitamin B12 1406.0 H (200.0-944.0) pg/mL 02/17/22 Range/Units 06:00 RBC (4.40-5.60) X 10*6/uL Hgb (13.0-17.0) g/dL Hct (39.6-50.0) % MCV (80.0-97.0) fL MCH (27.0-32.0) pg MCHC (32.0-37.0) g/dL RDW (11.5-14.5) % Plt Count (140-440) X 10*3/uL Plt Count Comment MPV (9.5-12.2) fL Absolute Nucleated RBC (0.00-0.00) X 10*3/uL Monocytes # (0.20-1.00) X 10*3/uL NRBC/100 WBC Diff (0.0-0.0) /100 WBCS Immature Plt Fraction (1.1-6.1) % PT 14.8 H (9.9-11.9) sec INR 1.33 H (0.90-1.11) Anion Gap (10.00-18.00) mmol/L BUN (9.0-27.0) mg/dL BUN/Creatinine Ratio (12.00-20.00) Ratio Calcium (8.7-10.3) mg/dL Total Bilirubin (0.30-1.20) mg/dL AST (14-35) U/L Albumin (3.8-4.9) g/dL Globulin (1.6-3.3) g/dL Albumin/Globulin Ratio (1.60-3.17) g/dL Lipase (14-60) U/L Vitamin B12 (200.0-944.0) pg/mL Assessment and Plan Assessment: Hemoptysis versus hematemesis Chronic alcoholic liver disease Thrombocytopenia Extensive history of smoking and continue Extensive history of alcohol consumption Mild degree of coagulopathy appeared to be related to chronic liver disease Plan: We will repeat CBC tomorrow Platelet transfusion Bronchoscopy when platelet count improved Patient and significant others updated and explained about the pathophysiology at length Time with Patient: Greater than 30
--- NOTE | 2022-02-17 20:34 | P.PN ---
Subjective This is a 41 year old male who presents to the emergency room with complaints of shortness of breath and hemoptysis. This is ongoing for the last 2-3 days, he also reports nausea vomiting and diarrhea. Today he complains of right upper quadrant pain that is normal for him, however this is significant tenderness with palpation. He has also noted that his urine is darker than usual and the whites of his eyes appeared more yellow. Patient has chronic liver issues which states was diagnosed 6 months ago. He was evaluated by dr Keny Ornelas at [facility] where he underwent paracentesis and had about 2 L of fluid removed. He has not followed up with GI in the office. Additional medical history includes hypertension, anxiety, depression, panic disorder, PTSD, is a daily smoker, history of chronic heavy binge drinking. States he drinks 4 24 oz beers per day as well as 4 shots or mixed drinks. States his last drink was yesterday morning. He has not been hospitalized for acute alcohol withdrawal before, however today he is feeling anxious and shaky, he is also slightly tachycardic. Covid, influenza A/B not detected. Patient does have a low grade fever of 99.9, heart rate 90, blood pressure 146/93, 98% on room air. Patient is in the hospital co nsults placed to pulmonary services for hemoptysis and GI services for evaluation of liver disease. He is started on CIWA protocol. 02/17/2022 This is a pleasant 41 years old -[place] male who presents with right upper quadrant abdominal pain nausea vomiting secondary to alcoholic liver dis ease with anemia and thrombocytopenia and hemoptysis. Patient is been followed closely by pulmonary and GI service. Patient planned to go for bronchoscopy today which is helped because of thrombocytopenia. Received 1 unit of blood transfusion and we will check the level and again tomorrow. Other than that he is hemodynamically stable. Hemoptysis is improving and minimal. Has some nausea but no vomiting. Also his pain is improving. Patient was counseled extensively about abstinence from alcohol with /significant other at bedside. Objective - Vital Signs Vital signs: Vital Signs Temp 98.4 F 02/17/22 07:00 Pulse 83 02/17/22 07:00 Resp 18 02/17/22 08:50 BP 156/83 02/17/22 07:00 Pulse Ox 100 02/17/22 07:00 Intake & Output 0502/17/22 02/17/22 18:59 06:59 18:59 Intake Total 178 Output Total 200 Weight 100.698 kg Intake: Oral 178 Output: Urine 200 Other: # Voids 2 2 - Exam GENERAL: The patient is alert and oriented x3, not in any acute distress. Well developed, well nourished. HEENT: Pupils are round and equally reacting to light. EOMI. No scleral icterus. No conjunctival pallor. Normocephalic, atraumatic. No pharyngeal erythema. No thyromegaly. CARDIOVASCULAR: S1 and S2 present. No murmurs, rubs, or gallops. PULMONARY: Chest is clear to auscultation, no wheezing or crackles. -ABDOMEN: Soft, mild RUQ tenderness, no rebound tenderness, nondistended, normoactive bowel sounds. No palpable organomegaly. MUSCULOSKELETAL: No joint swelling or deformity. EXTREMITIES: No cyanosis, clubbing, or pedal edema. NEUROLOGICAL: Gross neurological examination did not reveal any focal deficits. SKIN: No rashes. no petechiae. - Labs CBC & Chem 7: 02/17/22 06:00 02/17/22 06:00 Labs: Abnormal Lab Results - Last 24 Hours (Table) 02/16/22 02/16/22 02/16/22 Range/Units 11:10 11:10 11:10 RBC 3.73 L (4.30-5.90) m/uL Hgb 12.8 L (13.0-17.5) gm/dL MCV 108.3 H (80.0-100.0) fL Plt Count 48 L (150-450) k/uL Macrocytosis Marked A PT 15.0 H (9.0-12.0) sec INR 1.5 H (<1.2) Anion Gap (10.00-18.00) mmol/L BUN (9.0-27.0) mg/dL BUN/Creatinine Ratio (12.00-20.00) Ratio Calcium (8.7-10.3) mg/dL Magnesium 1.5 L (1.6-2.3) mg/dL Total Bilirubin (0.30-1.20) mg/dL AST (14-35) U/L Albumin (3.8-4.9) g/dL Globulin (1.6-3.3) g/dL Albumin/Globulin Ratio (1.60-3.17) g/dL Lipase (14-60) U/L Vitamin B12 1406.0 H (200.0-944.0) pg/mL Urine Opiates Screen (NotDetected) U Benzodiazepines Scrn (NotDetected) U Marijuana (THC) Screen (NotDetected) 02/16/22 02/17/22 02/17/22 Range/Units 13:19 06:00 06:00 RBC (4.30-5.90) m/uL Hgb (13.0-17.5) gm/dL MCV (80.0-100.0) fL Plt Count (150-450) k/uL Macrocytosis PT 14.8 H (9.0-12.0) sec INR 1.33 H (<1.2) Anion Gap 8.50 L (10.00-18.00) mmol/L BUN 5.4 L (9.0-27.0) mg/dL BUN/Creatinine Ratio 6.00 L (12.00-20.00) Ratio Calcium 8.5 L (8.7-10.3) mg/dL Magnesium (1.6-2.3) mg/dL Total Bilirubin 2.20 H (0.30-1.20) mg/dL AST 95 H (14-35) U/L Albumin 3.2 L (3.8-4.9) g/dL Globulin 3.7 H (1.6-3.3) g/dL Albumin/Globulin Ratio 0.86 L (1.60-3.17) g/dL Lipase 67 H (14-60) U/L Vitamin B12 (200.0-944.0) pg/mL Urine Opiates Screen Detected H (NotDetected) U Benzodiazepines Scrn Detected H (NotDetected) U Marijuana (THC) Screen Detected H (NotDetected) Assessment and Plan Assessment: Hemoptysis Right upper quadrant abdominal pain with associated nausea, vomiting, diarrhea secondary to alcoholic liver disease Acute alcoholic hepatitis with elevated LFT's, Thrombocytopenia Hypomagnesemia Chronic alcohol abuse Hepatic steatosis Hypertension Anxiety History of PTSD Daily tobacco use Plan: This is a pleasant 41 years old male who presents with hemoptysis and alcoholic liver disease. Plan for bronchoscopy in the morning if platelet count improved per clinical academic allergist Pulmonary and GI team on the case. Keep monitor labs. Advised to abstinence from alcohol. Labs and medication were reviewed.. Continue same treatment. Continue with symptomatic treatment. Resume home medication. Monitor lytes and vitals. DVT and GI prophylaxis. Further recommendationsas per clinical course of the roger ent DVT prophylaxis: no heparin for thrombocytopenia GI Prophylaxis: Ppi Prognosis is guarded
[2022-02-18] MEDS: HYDROcodone/APAP 5-325MG 1 EACH TAB PO PRN ×3 (05:49→19:56)
[2022-02-18] MEDS: SODIUM CHLORIDE 0.9% 1,000 ML IV SCH ×2 (05:50→17:58)
[2022-02-18] MEDS: PANTOPRAZOLE 40 MG/10 ML VIAL IVP SCH ×2 (08:52→19:57)
[2022-02-18] MEDS: amLODIPine 10 MG TAB PO SCH (08:52)
[2022-02-18] MEDS: THIAMINE 100 MG TAB PO SCH ×2 (08:52→17:56)
[2022-02-18 10:17] LABS: Basophils # (A) 0.04 X 10*3/uL (0.00-0.10); Basophils % (A) 0.6 %; Eosinophils # (A) 0.19 X 10*3/uL (0.04-0.35); Eosinophils % (A) 2.6 %; HCT 36.5 % (39.6-50.0); HGB 11.9 g/dL (13.0-17.0); Immature Grans, Automated 0.4 %; Immature Platelet Fraction 12.3 % (1.1-6.1); Lymphocytes # (A) 1.54 X 10*3/uL (0.90-5.00); Lymphocytes % (A) 21.3 %; MCH 34.2 pg (27.0-32.0); MCHC 32.6 g/dL (32.0-37.0); MCV 104.9 fL (80.0-97.0); Mean Platelet Volume 12.6 fL (9.5-12.2); Monocytes % (A) 16.6 %; NRBC Per 100 WBC 0 /100 WBCS (0.0-0.0); Neutrophils # (A) 4.24 X 10*3/uL (1.80-7.70); Neutrophils % (A) 58.5 %; Platelet Count 55 X 10*3/uL (140-440); RBC 3.48 X 10*6/uL (4.40-5.60); RDW 15.8 % (11.5-14.5); WBC 7.24 X 10*3/uL (4.50-10.00)
[2022-02-18 11:04] LABS: ALT 29 U/L (4-49); AST 81 U/L (17-59); African American GFR (CKD) >90 (>60 ml/min/1.73 sqM); Albumin/Globulin Ratio 0.8; Alkaline Phosphatase 107 U/L (38-126); Anion Gap 6 mmol/L; Blood Urea Nitrogen 6 mg/dL (9-20); Calcium 8.2 mg/dL (8.4-10.2); Carbon Dioxide 26 mmol/L (22-30); Chloride 102 mmol/L (98-107); Glucose 106 mg/dL (74-99); Non-African American GFR(CKD) >90 (>60 ml/min/1.73 sqM); Sodium 134 mmol/L (137-145)
--- NOTE | 2022-02-18 14:11 | P.PN ---
Subjective Progress Note Date: 02/18/22 Principal diagnosis: Hemoptysis versus hematemesis Chronic alcoholic liver disease Thrombocytopenia Extensive history of smoking and continue Extensive history of alcohol consumption Mild degree of coagulopathy appeared to be related to chronic liver disease 02/18/2022, patient seen eval reexamined during the rounds intermittent cough is present with intermittent chest tightness, denies any shortness of breath denies any contusions chest pain hemoptysis not seen any more, labs from this morning reviewed platelet count improved to 55,000 posttransfusion 02/17/2022, patient seen eval reexamined during on's labs reviewed medications in reviewed, no active hemoptysis has been noted however patient is cuffing brownish sputum to white sputum, patient INR improved but however platelet drop down to 39,000, transfusion and platelet not available procedure of bronchoscopy have been canceled, will do the platelet transfusion repeat platelet levels tomorrow anticipated bronchoscopy on Tuesday Patient is a 41-year-old male with extensive history of smoking and nicotine use patient also has extensive alcohol consumption with prior history of ascites requiring large volume paracentesis about 6 months ago at [facility]. Patient came into the hospital with 3 day history of shortness of breath cough and hemoptysis with [place] chunks of blood has been feeling very weak diffuse aches and pains throughout the bodies are present denies any chest pain denies any similar episode in the past prior history significant for hypertension. On arrival his lactic acid is mildly elevated of 2.1, PT/INR 15/1.9 white cell count is 6100 hemoglobin and hematocrit is 12 and 40 platelet count of only 48,000. Urine is positive for opiates benzodiazepine and marijua na. Magnesium is 1.5, chest x-ray is unremarkable no active cardiopulmonary process seen. Computed tomography scan of the chest with contrast negative for pulmonary embolism no focal consolidation or pleural effusion pneumothorax in the airways are patent, patient noted to have gynecomastia on computed tomography scan. GI have evaluated the patient placed patient on IV Protonix Objective - Vital Signs Vital signs: Vital Signs Temp 98.3 F 02/18/22 07:00 Pulse 74 02/18/22 07:00 Resp 18 02/18/22 07:00 BP 139/69 02/18/22 07:00 Pulse Ox 98 02/18/22 07:00 Intake & Output 02/17/22 02/18/2202/18/22 18:59 06:59 18:59 Intake Total 260 1073 Balance 260 1073 Intake: Intake, IV Titration 600 Amount Sodium Chloride 0.9% 1, 600 000 ml @ 75 mls/hr IV . [id number] [facility] Rx#:[id number] Oral 473 Blood Product 260 Platelet Pheresis Pas 260 Psoralen Unit [id number] Other: Voiding Method Toilet # Voids 3 2 - Exam - Constitutional General appearance: average body habitus, cooperative, disheveled - EENT Eyes: EOMI, PERRLA ENT: normal oropharynx Ears: bilateral: normal - Neck Carotids: bilateral: upstroke normal - Respiratory Respiratory: bilateral: CTA - Cardiovascular Rhythm: regular Heart sounds: normal: S1, S2 - Gastrointestinal General gastrointestinal: soft - Integumentary Integumentary: normal turgor - Neurologic Neurologic: CNII-XII intact - Musculoskeletal Musculoskeletal: gait normal, generalized weakness, strength equal bilaterally - Psychiatric Psychiatric: A&O x's 3, appropriate affect, intact judgment & insight - Labs CBC & Chem 7: 02/18/22 06:23 02/18/22 06:23 Labs: Abnormal Lab Results - Last 24 Hours (Table) 02/18/22 02/18/22 Range/Units 06:23 06:23 RBC 3.48 L (4.40-5.60) X 10*6/uL Hgb 11.9 L (13.0-17.0) g/dL Hct 36.5 L (39.6-50.0) % MCV 104.9 H (80.0-97.0) fL MCH 34.2 H (27.0-32.0) pg RDW 15.8 H (11.5-14.5) % Plt Count 55 L (140-440) X 10*3/uL MPV 12.6 H (9.5-12.2) fL Monocytes # 1.20 H (0.20-1.00) X 10*3/uL Immature Plt Fraction 12.3 H (1.1-6.1) % Sodium 134 L (137-145) mmol/L BUN 6 L (9-20) mg/dL Glucose 106 H (74-99) mg/dL Calcium 8.2 L (8.4-10.2) mg/dL Total Bilirubin 2.0 H (0.2-1.3) mg/dL AST 81 H (17-59) U/L Albumin 3.0 L (3.5-5.0) g/dL Assessment and Plan Assessment: Hemoptysis versus hematemesis Chronic alcoholic liver disease Thrombocytopenia Extensive history of smoking and continue Extensive history of alcohol consumption Mild degree of coagulopathy appeared to be related to chronic liver disease Plan: Status post Platelet transfusion Bronchoscopy tomorrow as platelet count improved Patient and significant others updated and explained about the pathophysiology at length Time with Patient: Greater than 30
--- NOTE | 2022-02-18 18:13 | P.PN ---
Subjective Progress Note Date: 02/18/22 Principal diagnosis: Alcoholic Liver disease Patient is a 41-year-old male who presented to the emergency department with complaints of shortness of breath and cough. He was noted to have elevated LFTs. Underwent ultrasound of the gallbladder with findings of hepatic steatosis with hepatomegaly. Patient has a significant history of alcohol abuse. He was seen and examined today. States cough is somewhat better. No further coughing up blood. Patient supposed to undergo bronchoscopy possibly today. Yesterday he received platelets. Platelet count today 55,000. He den ies any bleeding. no other acute changes. Objective - Vital Signs Vital signs: Vital Signs Temp 98.4 F 02/18/22 02:42 Pulse 88 02/18/22 02:42 Resp 17 02/18/22 02:42 BP 145/79 02/18/22 02:42 Pulse Ox 95 02/18/22 02:42 Intake & Output 02/17/22 02/18/22 02/18/22 18:59 06:59 18:59 Intake Total 260 Balance 260 Intake: Blood Product 260 Platelet Pheresis Pas 260 Psoralen Unit [id number] Other: Voiding Method Toilet # Voids 3 2 - Exam General appearance: The patient is alert, oriented, appears in no acute distress. HET: Head is normocephalic and atraumatic. Conjunctiva pink. Sclera anicteric. Neck: Supple without lymphadenopathy. Abdomen: Soft, right-sided tenderness, hepatomegaly, nondistended with bowel sounds. No guarding or rigidity. Extremities: Normal skin color and turgor. No pedal edema Skin: No rashes, no jaundice Neurological: No focal deficits. Alert and oriented x3. - Labs CBC & Chem 7: 02/18/22 06:23 02/18/22 06:23 Labs: Abnormal Lab Results - Last 24 Hours (Table) 02/17/22 02/17/22 02/17/22 Range/Units 06:00 06:00 06:00 RBC 3.69 L (4.40-5.60) X 10*6/uL Hgb 12.4 L (13.0-17.0) g/dL Hct 39.4 L (39.6-50.0) % MCV 106.8 H (80.0-97.0) fL MCH 33.6 H (27.0-32.0) pg MCHC 31.5 L (32.0-37.0) g/dL RDW 15.6 H (11.5-14.5) % Plt Count 39 L (140-440) X 10*3/uL Plt Count Comment A MPV 13.8 H (9.5-12.2) fL Absolute Nucleated RBC 0.02 H (0.00-0.00) X 10*3/uL Monocytes # 1.10 H (0.20-1.00) X 10*3/uL NRBC/100 WBC Diff 0.3 H (0.0-0.0) /100 WBCS Immature Plt Fraction 12.7 H (1.1-6.1) % PT 14.8 H (9.9-11.9) sec INR 1.33 H (0.90-1.11) Anion Gap 8.50 L (10.00-18.00) mmol/L BUN 5.4 L (9.0-27.0) mg/dL BUN/Creatinine Ratio 6.00 L (12.00-20.00) Ratio Calcium 8.5 L (8.7-10.3) mg/dL Total Bilirubin 2.20 H (0.30-1.20) mg/dL AST 95 H (14-35) U/L Albumin 3.2 L (3.8-4.9) g/dL Globulin 3.7 H (1.6-3.3) g/dL Albumin/Globulin Ratio 0.86 L (1.60-3.17) g/dL Lipase 67 H (14-60) U/L Assessment and Plan (1) Liver disease Narrative/Plan: A 11-year-old with a history of significant alcohol abuse for many years. States he has been trying to cut back and is down to approximately 324 ounce beers a day. Denies any previous history of known liver disease however does state that he was admitted to [facility] about 6 months ago and underwent a paracentesis with 2 L of fluid removed. He also states he was started on diuretics at that time however did not follow-up. He's had no further abdominal swelling. He was noted to have elevated LFTs consistent with alcoholic liver disease. We'll continue to monitor LFTs. Discussed with patient importance of alcohol abstinence. Current Visit: Yes Status: Acute Code(s): K76.9 - LIVER DISEASE, UNSPECIFIED SNOMED Code(s): 774092814 (2) Alcohol abuse Current Visit: Yes Status: Acute Code(s): F10.10 - ALCOHOL ABUSE, UN COMPLICATED SNOMED Code(s): 44886709 (3) Hemoptysis Current Visit: Yes Status: Acute Code(s): R04.2 - HEMOPTYSIS SNOMED Code(s): 26314016 (4) Thrombocytopenia Narrative/Plan: Related to underlying liver disease. platelets ordered Current Visit: Yes Status: Acute Code(s): D69.6 - THROMBOCYTOPENIA, UNSPECIFIED SNOMED Code(s): 699741598 Plan: 1. Continue symptomatic and supportive care 2. Close surveillance for withdrawal symptoms 3. Recommend alcohol abstinence 4. Recommend outpatient follow-up with gastroenterology 5. CBC, CMP daily Thank you for this consultation, we'll continue to follow. Dr. Mando Ornelas I agree with the dictator's note, documented as a scribe by Minal Medel.
--- NOTE | 2022-02-18 22:24 | P.PN ---
Subjective This is a 41 year old male who presents to the emergency room with complaints of shortness of breath and hemoptysis. This is ongoing for the last 2-3 days, he also reports nausea vomiting and diarrhea. Today he complains of right upper quadrant pain that is normal for him, however this is significant tenderness with palpation. He has also noted that his urine is darker than usual and the whites of his eyes appeared more yellow. Patient has chronic liver issues which states was diagnosed 6 months ago. He was evaluated by dr Keyn Ornelas at [facility] where he underwent paracentesis and had about 2 L of fluid removed. He has not followed up with GI in the office. Additional medical history includes hypertension, anxiety, depression, panic disorder, PTSD, is a daily smoker, history of chronic heavy binge drinking. States he drinks 4 24 oz beers per day as well as 4 shots or mixed drinks. States his last drink was yesterday morning. He has not been hospitalized for acute alcohol withdrawal before, however today he is feeling anxious and shaky, he is also slightly tachycardic. Covid, influenza A/B not detected. Patient does have a low grade fever of 99.9, heart rate 90, blood pressure 146/93, 98% on room air. Patient is in the hospital co nsults placed to pulmonary services for hemoptysis and GI services for evaluation of liver disease. He is started on CIWA protocol. 02/17/2022 This is a pleasant 41 years old -[place] male who presents with right upper quadrant abdominal pain nausea vomiting secondary to alcoholic liver dis ease with anemia and thrombocytopenia and hemoptysis. Patient is been followed closely by pulmonary and GI service. Patient planned to go for bronchoscopy today which is helped because of thrombocytopenia. Received 1 unit of blood transfusion and we will check the level and again tomorrow. Other than that he is hemodynamically stable. Hemoptysis is improving and minimal. Has some nausea but no vomiting. Also his pain is improving. Patient was counseled extensively about abstinence from alcohol with /significant other at bedside. 02/18/2022 Patient with hemoptysis which was postponed yesterday for thrombocytopenia. Patient received 1 unit of platelet transfusion yesterday and her platelet count improved 39 up to 55 today. So pulmonary team are planning for bronchoscopy tomorrow. His right upper quadrant abdominal pain and nausea vomiting are improving secondary to alcoholic liver disease. Also has evidence of hepatic steatosis and hepatomegaly on liver ultrasound. Patient also will need to follow-up with GI team upon discharge Objective - Vital Signs Vital signs: Vital Signs Temp 98.3 F 02/18/22 07:00 Pulse 74 02/18/22 07:00 Resp 18 02/18/22 07:00 BP 139/69 02/18/22 07:00 Pulse Ox 98 02/18/22 07:00 Intake & Output 02/17/22 02/18/22 02/18/22 18:59 06:59 18:59 Intake Total 260 473 Balance 260 473 Intake: Oral 473 Blood Product 260 Platelet Pheresis Pas 260 Psoralen Unit [id number] Other: Voiding Method Toilet # Voids 3 2 - Exam GENERAL: The patient is alert and oriented x3, not in any acute distress. Well developed, well nourished. HEENT: Pupils are round and equally reacting to light. EOMI. No scleral icterus. No conjunctival pallor. Normocephalic, atraumatic. No pharyngeal erythema. No thyromegaly. CARDIOVASCULAR: S1 and S2 present. No murmurs, rubs, or gallops. PULMONARY: Chest is clear to auscultation, no wheezing or crackles. -ABDOMEN: Soft, mild RUQ tenderness, no rebound tenderness, nondistended, normoactive bowel sounds. No palpable organomegaly. MUSCULOSKELETAL: No joint swelling or deformity. EXTREMITIES: No cyanosis, clubbing, or pedal edema. NEUROLOGICAL: Gross neurological examination did not reveal any focal deficits. SKIN: No rashes. no petechiae. - Labs CBC & Chem 7: 02/18/22 06:23 02/18/22 06:23 Labs: Abnormal Lab Results - Last 24 Hours (Table) 02/17/22 02/18/22 Range/Units 06:00 06:23 RBC 3.69 L 3.48 L (4.40-5.60) X 10*6/uL Hgb 12.4 L 11.9 L (13.0-17.0) g/dL Hct 39.4 L 36.5 L (39.6-50.0) % MCV 106.8 H 104.9 H (80.0-97.0) fL MCH 33.6 H 34.2 H (27.0-32.0) pg MCHC 31.5 L (32.0-37.0) g/dL RDW 15.6 H 15.8 H (11.5-14.5) % Plt Count 39 L 55 L (140-440) X 10*3/uL Plt Count Comment A MPV 13.8 H 12.6 H (9.5-12.2) fL Absolute Nucleated RBC 0.02 H (0.00-0.00) X 10*3/uL Monocytes # 1.10 H 1.20 H (0.20-1.00) X 10*3/uL NRBC/100 WBC Diff 0.3 H (0.0-0.0) /100 WBCS Immature Plt Fraction 12.7 H 12.3 H (1.1-6.1) % Assessment and Plan Assessment: Hemoptysis Right upper quadrant abdominal pain with associated nausea, vomiting, diarrhea secondary to alcoholic liver disease Acute alcoholic hepatitis with elevated LFT's, Thrombocytopenia Hypomagnesemia Chronic alcohol abuse Hepatic steatosis Hypertension Anxiety History of PTSD Daily tobacco use Plan: This is a pleasant 41 years old male who presents with hemoptysis and alcoholic liver disease. Plan for bronchoscopy in the morning per whizzer operator Pulmonary and GI team on the case. Keep monitor labs. Advised to abstinence from alcohol. Labs and medication were reviewed.. Continue same treatment. Continue with symptomatic treatment. Resume home medication. Monitor lytes and vitals. DVT and GI prophylaxis. Further recommendations as per clinical course of the patient DVT prophylaxis: no heparin for thrombocytopenia GI Prophylaxis: Ppi Prognosis is guarded
[2022-02-19] MEDS: HYDROcodone/APAP 5-325MG 1 EACH TAB PO PRN ×3 (03:47→18:13)
[2022-02-19] MEDS: SODIUM CHLORIDE 0.9% 1,000 ML IV SCH ×2 (08:32→20:29)
[2022-02-19] MEDS: PANTOPRAZOLE 40 MG/10 ML VIAL IVP SCH ×2 (08:33→20:29)
[2022-02-19] MEDS: amLODIPine 10 MG TAB PO SCH (08:33)
[2022-02-19] MEDS: THIAMINE 100 MG TAB PO SCH ×2 (08:33→18:09)
[2022-02-19 09:35] LABS: African American GFR (CKD) 132.3 (60.0-200.0); Albumin 3.3 g/dL (3.8-4.9); Albumin/Globulin Ratio 0.94 (1.60-3.17); Anion Gap 8.3 mmol/L (10.00-18.00); BUN/Creat Ratio 9.5 Ratio (12.00-20.00); Bilirubin, Conjugated 1.06 mg/dL (0.20-0.40); Bilirubin,Unconjugated 0.87 mg/dL (0.20-1.00); Blood Urea Nitrogen 7.3 mg/dL (9.0-27.0); Calcium 8.7 mg/dL (8.7-10.3); Carbon Dioxide 27.1 mmol/L (20.0-27.5); Globulin 3.6 g/dL (1.6-3.3); Magnesium 1.8 mg/dL (1.5-2.4); Non-African American GFR(CKD) 114.1 (60.0-200.0); Potassium 3.8 mmol/L (3.5-5.5); Total Bilirubin 1.9 mg/dL (0.30-1.20); Total Protein 6.9 g/dL (6.2-8.2)
[2022-02-19 10:19] LABS: Basophils # (A) 0.06 X 10*3/uL (0.00-0.10); Basophils % (A) 0.8 %; Eosinophils # (A) 0.18 X 10*3/uL (0.04-0.35); Eosinophils % (A) 2.5 %; HCT 40.8 % (39.6-50.0); HGB 12.8 g/dL (13.0-17.0); Immature Grans, Automated 0.3 %; Lymphocytes # (A) 1.62 X 10*3/uL (0.90-5.00); Lymphocytes % (A) 22.9 %; MCH 33.8 pg (27.0-32.0); MCHC 31.4 g/dL (32.0-37.0); MCV 107.7 fL (80.0-97.0); Mean Platelet Volume 13.2 fL (9.5-12.2); Monocytes # (A) 1.29 X 10*3/uL (0.20-1.00); Monocytes % (A) 18.2 %; NRBC Per 100 WBC 0 /100 WBCS (0.0-0.0); Neutrophils % (A) 55.3 %; Platelet Count 56 X 10*3/uL (140-440); RBC 3.79 X 10*6/uL (4.40-5.60); RDW 15.6 % (11.5-14.5); WBC 7.07 X 10*3/uL (4.50-10.00)
[2022-02-19 10:20] LABS: Immature Platelet Fraction 13.3 % (1.1-6.1)
--- NOTE | 2022-02-19 13:33 | P.PN ---
Subjective Progress Note Date: 02/19/22 Principal diagnosis: Alcoholic Liver disease Patient is a 41-year-old male who presented to the emergency department with complaints of shortness of breath and cough. He was noted to have elevated LFTs. Underwent ultrasound of the gallbladder with findings of hepatic steatosis with hepatomegaly. Patient has a significant history of alcohol abuse. He was seen and examined today. States cough is somewhat better. No further coughing up blood. Patient supposed to undergo bronchoscopy today. Platelet count today 56,000. He denies any bleeding. No other acute changes. Objective - Vital Signs Vital signs: Vital Signs Temp 98.6 F 02/19/22 07:04 Pulse 76 02/19/22 07:04 Resp 18 02/19/22 07:04 BP 137/74 02/19/22 07:04 Pulse Ox 97 02/19/22 07:04 Intake & Output 02/18/22 02/19/22 02/19/22 18:59 06:59 18:59 Intake Total 1073 Output Total 900 Balance 1073 -900 Intake: Intake, IV Titration 600 Amount Sodium Chloride 0.9% 1, 600 000 ml @ 75 mls/hr IV . [id number] [facility] Rx#:[id number] Oral 473 Output: Urine 900 Other: Voiding Method Urinal # Voids 1 0 - Exam General appearance: The patient is alert, oriented, appears in no acute distress. HET: Head is normocephalic and atraumatic. Conjunctiva pink. Sclera anicteric. Neck: Supple without lymphadenopathy. Abdomen: Soft, right-sided tenderness, hepatomegaly, nondistended with bowel sounds. No guarding or rigidity. Extremities: Normal skin color and turgor. No pedal edema Skin: No rashes, no jaundice Neurological: No focal deficits. Alert and oriented x3. - Labs CBC & Chem 7: 02/19/22 05:11 02/19/22 05:11 Labs: Abnormal Lab Results - Last 24 Hours (Table) 02/18/22 02/19/22 02/19/22 Range/Units 06:23 05:11 05:11 RBC 3.79 L (4.40-5.60) X 10*6/uL Hgb 12.8 L (13.0-17.0) g/dL MCV 107.7 H (80.0-97.0) fL MCH 33.8 H (27.0-32.0) pg MCHC 31.4 L (32.0-37.0) g/dL RDW 15.6 H (11.5-14.5) % Plt Count 56 L (140-440) X 10*3/uL MPV 13.2 H (9.5-12.2) fL Monocytes # 1.29 H (0.20-1.00) X 10*3/uL Immature Plt Fraction 13.3 H (1.1-6.1) % Sodium 134 L (137-145) mmol/L Anion Gap 8.30 L (10.00-18.00) mmol/L BUN 6 L 7.3 L (9-20) mg/dL BUN/Creatinine Ratio 9.50 L (12.00-20.00) Ratio Glucose 106 H (74-99) mg/dL Calcium 8.2 L (8.4-10.2) mg/dL Total Bilirubin 2.0 H 1.90 H (0.2-1.3) mg/dL Conjugated Bilirubin 1.06 H (0.20-0.40) mg/dL AST 81 H 63 H (17-59) U/L Albumin 3.0 L 3.3 L (3.5-5.0) g/dL Globulin 3.6 H (1.6-3.3) g/dL Albumin/Globulin Ratio 0.94 L (1.60-3.17) g/dL Assessment and Plan (1) Liver disease Narrative/Plan: A 11-year-old with a history of significant alcohol abuse for many years. States he has been trying to cut back and is down to approximately 324 ounce beers a day. Denies any previous history of known liver disease however does state that he was admitted to [facility] about 6 months ago and underwent a paracentesis with 2 L of fluid removed. He also states he was started on diuretics at that time however did not follow-up. He's had no further abdominal swelling. He was noted to have elevated LFTs consistent with alcoholic liver disease. We'll continue to monitor LFTs. Discussed with patient importance of alcohol abstinence. Current Visit: Yes Status: Acute Code(s): K76.9 - LIVER DISEASE, UNSPECIFIED SNOMED Code(s): 707633271 (2) Alcohol abuse Current Visit: Yes Status: Acute Code(s): F10.10 - ALCOHOL ABUSE, UNCOMPLICATED SNOMED Code(s): 92252839 (3) Hemoptysis Narrative/Plan: Pulmonology following, bronchoscopy scheduled today. Current Visit: Yes Status: Acute Code(s): R04.2 - HEMOPTYSIS SNOMED Code(s): 96588754 (4) Thrombocytopenia Narrative/Plan: Related to underlying liver disease. platelets ordered Current Visit: Yes Status: Acute Code(s): D69.6 - THROMBOCYTOPENIA, UNSPECIFIED SNOMED Code(s): 678439965 Plan: 1. Continue symptomatic and supportive care 2. Close surveillance for withdrawal symptoms 3. Recommend alcohol abstinence 4. Recommend outpatient follow-up with gastroenterology Thank you for this consultation, we will sign off at this time.. Dr. Mando Ornelas I agree with the dictator's note, documented as a scribe by Minal Medel.
--- NOTE | 2022-02-19 19:26 | P.PN ---
Subjective Progress Note Date: 02/19/22 Principal diagnosis: Hemoptysis versus hematemesis Chronic alcoholic liver disease Thrombocytopenia Extensive history of smoking and continue Extensive history of alcohol consumption Mild degree of coagulopathy appeared to be related to chronic liver disease 02/19/2022, patient seen eval reexamined during the rounds labs reviewed medications reviewed care plan discussed with the patient at length as well as staff, anesthesia has refused to do the procedure and given anesthesia suspected to be high risk for complications, however platelet count remains stable 56,000 today compared to 55,000 yesterday post 1 unit when it was 39,000 now more active bleeding is seen patient has occasionally white sputum production intermittent pain takes [place] with that pain improved 02/18/2022, patient seen eval reexamined during the rounds intermittent cough is present with intermittent chest tightness, denies any shortness of breath denies any contusions chest pain hemoptysis not seen any more, labs from this morning reviewed platelet count improved to 55,000 posttransfusion 02/17/2022, patient seen eval reexamined during on's labs reviewed medications in reviewed, no active hemoptysis has been noted however patient is cuffing brownish sputum to white sputum, patient INR improved but however platelet drop down to 39,000, transfusion and platelet not available procedure of bronchoscopy have been canceled, will do the platelet transfusion repeat platelet levels tomorrow anticipated bronchoscopy on Tuesday Patient is a 41-year-old male with extensive history of smoking and nicotine use patient also has extensive alcohol consumption with prior history of ascites requiring large volume paracentesis about 6 months ago at [facility]. Patient came into the hospital with 3 day history of shortness of breath cough and hemoptysis with [place] chunks of blood has been feeling very weak diffuse aches and pains throughout the bodies are present denies any chest pain denies any similar episode in the past prior history significant for hypertension. On arrival his lactic acid is mildly elevated of 2.1, PT/INR 15/1.9 white cell count is 6100 hemoglobin and hematocrit is 12 and 40 platelet count of only 48,000. Urine is positive for opiates benzodiazepine and marijuana. Magnesium is 1.5, chest x-ray is unremarkable no active cardiopulmonary process seen. 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 GI have evaluated the patient placed patient on IV Protonix Objective - Vital Signs Vital signs: Vital Signs Temp 98.6 F 02/19/22 14:00 Pulse 74 02/19/22 14:00 Resp 18 02/19/22 14:00 BP 142/78 02/19/22 14:00 Pulse Ox 100 02/19/22 14:00 Intake & Output 02/19/22 02/19/22 02/20/22 06:59 18:59 06:59 Intake Total 120 Output Total 900 425 Balance -900 -305 Intake: Oral 120 Output: Urine 900 425 Other: Voiding Method Urinal # Voids 1 0 - Exam - Constitutional General appearance: average body habitus, cooperative, disheveled - EENT Eyes: EOMI, PERRLA ENT: normal oropharynx Ears: bilateral: normal - Neck Carotids: bilateral: upstroke normal - Respiratory Respiratory: bilateral: CTA - Cardiovascular Rhythm: regular Heart sounds: normal: S1, S2 - Gastrointestinal General gastrointestinal: soft - Integumentary Integumentary: normal turgor - Neurologic Neurologic: CNII-XII intact - Musculoskeletal Musculoskeletal: gait normal, generalized weakness, strength equal bilaterally - Psychiatric Psychiatric: A&O x's 3, appropriate affect, intact judgment & insight - Labs CBC & Chem 7: 02/19/22 05:11 02/19/22 05:11 Labs: Abnormal Lab Results - Last 24 Hours (Table) 02/19/22 02/19/22 Range/Units 05:11 05:11 RBC 3.79 L (4.40-5.60) X 10*6/uL Hgb 12.8 L (13.0-17.0) g/dL MCV 107.7 H (80.0-97.0) fL MCH 33.8 H (27.0-32.0) pg MCHC 31.4 L (32.0-37.0) g/dL RDW 15.6 H (11.5-14.5) % Plt Count 56 L (140-440) X 10*3/uL MPV 13.2 H (9.5-12.2) fL Monocytes # 1.29 H (0.20-1.00) X 10*3/uL Immature Plt Fraction 13.3 H (1.1-6.1) % Anion Gap 8.30 L (10.00-18.00) mmol/L BUN 7.3 L (9.0-27.0) mg/dL BUN/Creatinine Ratio 9.50 L (12.00-20.00) Ratio Total Bilirubin 1.90 H (0.30-1.20) mg/dL Conjugated Bilirubin 1.06 H (0.20-0.40) mg/dL AST 63 H (14-35) U/L Albumin 3.3 L (3.8-4.9) g/dL Globulin 3.6 H (1.6-3.3) g/dL Albumin/Globulin Ratio 0.94 L (1.60-3.17) g/dL Assessment and Plan Assessment: Hemoptysis versus hematemesis, no active process seen since admission Chronic alcoholic liver disease Thrombocytopenia Extensive history of smoking and continue Extensive history of alcohol consumption Mild degree of coagulopathy appeared to be related to chronic liver disease Plan: Status post Platelet transfusion Bronchoscopy canceled by anesthesia Consider discharge planning with follow-up on outpatient basis Patient and significant others updated and explained about the pathophysiology at length Time with Patient: Greater than 30
[2022-02-20] MEDS: HYDROcodone/APAP 5-325MG 1 EACH TAB PO PRN ×3 (00:20→13:17)
[2022-02-20] MEDS: PANTOPRAZOLE 40 MG/10 ML VIAL IVP SCH (08:31)
[2022-02-20] MEDS: THIAMINE 100 MG TAB PO SCH (08:31)
[2022-02-20] MEDS: amLODIPine 10 MG TAB PO SCH (08:31)
[2022-02-20 08:33] VITALS: RESP 18
[2022-02-20] MEDS: SODIUM CHLORIDE 0.9% 1,000 ML IV SCH (12:27)
[2022-02-20 15:11] VITALS: BP 133/69; PULSE 75; TEMP 98.4
--- NOTE | 2022-02-25 11:38 | CDI ---
Documentation Clarification Form Date: 02/25/2022 11:22:00 AM From: Susie Zaragoza Admit Date: 02/17/2022 05:46:00 PM Patient Name: Jerome Agosto Visit Number: [id number] Discharge Date: 02/20/2022 04:09:00 PM ATTENTION: The Clinical Documentation Specialists (CDI) and [facility] Coding Staff appreciate your assistance in clarifying documentation. Please respond to the clarification below the line at the bottom and electronically sign. The CDI & [facility] Coding staff will review the response and follow-up if needed. Please note: Queries are made part of the Legal Health Record. If you have any questions, please contact the author of this message via ITS. Dr. Monsivais E Sheet Per addendum in the H&P on 02/16/22, Hemoptysis possible due to acute alcoholic gastritis is documented. Treated with IV protonix. This diagnosis is not carried throughout the chart. Please clarify if patient had bleeding alcoholic gastritis, or was this dx ruled out. History/risk factors: patient has alcohol abuse, anemia, coagulopathy, thrombocytopenia Labs: HGB 12.4 Treatment: IV protonix Consults: GI consult Please clarify the etiology of the hemoptysis if known: [ ] Acute Alcoholic gastritits [ ] Acute Alcoholic gastrtitis ruled out [ ] Other, please specify [ ] Unable to determine Acute Alcoholic gastritits MTDD
== END 2022-02-20 16:09 | disposition home or self-care (01) | DRG 433 ==
LOC: EC 15:23 → 6NMEDSUR 22:03 → OBSVTOIN 02-17 17:46
PROVIDERS: ADMIT Internal Medicine; ATTEND Internal Medicine
PROC: 30233R1 Transfusion of Nonautologous Platelets into Peripheral Vein, Percutaneous Approach (ICD-10-PCS; principal; 2022-02-17)
DX: K70.10 Alcoholic hepatitis without ascites (principal); D68.4 Acquired coagulation factor deficiency; E87.2 Acidosis; R04.2 Hemoptysis; K29.20 Alcoholic gastritis without bleeding; E83.42 Hypomagnesemia; D63.8 Anemia in other chronic diseases classified elsewhere; D69.59 Other secondary thrombocytopenia; K29.00 Acute gastritis without bleeding; F10.10 Alcohol abuse, uncomplicated; K76.0 Fatty (change of) liver, not elsewhere classified; I10 Essential (primary) hypertension; F41.9 Anxiety disorder, unspecified; R16.0 Hepatomegaly, not elsewhere classified; F17.200 Nicotine dependence, unspecified, uncomplicated; F41.0 Panic disorder [episodic paroxysmal anxiety]; F43.10 Post-traumatic stress disorder, unspecified; K21.9 Gastro-esophageal reflux disease without esophagitis; F32.A Depression, unspecified; N62 Hypertrophy of breast; Z53.09 Procedure and treatment not carried out because of other contraindication; Z20.822 Contact with and (suspected) exposure to COVID-19; Z79.899 Other long term (current) drug therapy; Z98.890 Other specified postprocedural states; Z71.41 Alcohol abuse counseling and surveillance of alcoholic; Z28.310 Unvaccinated for COVID-19; Z91.81 History of falling; Z87.828 Personal history of other (healed) physical injury and trauma; Z86.2 Personal history of diseases of the blood and blood-forming organs and certain disorders involving the immune mechanism; Z80.1 Family history of malignant neoplasm of trachea, bronchus and lung; Z82.49 Family history of ischemic heart disease and other diseases of the circulatory system; Z83.3 Family history of diabetes mellitus; Z81.8 Family history of other mental and behavioral disorders
CPT/HCPCS: 36415; 71046; 71275; 76705; 80048; 80053; 80076; 80306; 81003; 82150; 82607; 82747; 83605; 83690; 83735; 84484; 85025; 85379; 85610; 85730; 86850; 86900; 86901; 87502; 87635; 93005; 96361; 96372; 96374; 96375; 96376; 99285

== ENCOUNTER 2022-05-29 00:53 | Inpatient (IN) | payer OTHER ==
[2022-05-29] MEDS ORDERED: SODIUM CHLORIDE 0.9% 1,000 ML IV STA (01:25)
--- NOTE | 2022-05-29 01:26 | ED ---
Chest Pain HPI - General Chief Complaint: Chest Pain Stated Complaint: chest pain, SOB Time Seen by Provider: 05/29/22 01:25 Source: patient, family Mode of arrival: ambulatory Limitations: no limitations - Related Data Home Medications Medication Instructions Recorded Confirmed Metoclopramide [Reglan] 10 mg PO QID PRN 02/15/22 02/15/22 amLODIPine [Norvasc] 5 mg PO DAILY 02/15/22 02/15/22 Previous Rx's Medication Instructions Recorded Pantoprazole Sodium [Protonix] 40 mg PO AC-BRKFST 30 Days #30 tab 02/20/22 Thiamine [Vitamin B-1] 100 mg PO BID-W/MEALS tab 02/20/22 Allergies Allergy/AdvReac Type Severity Reaction Status Date / Time No Known Allergies Allergy Verified 05/29/22 01:02 Review of Systems ROS Statement: Those systems with pertinent positive or pertinent negative responses have been documented in the HPI. ROS Other: All systems not noted in ROS Statement are negative. Past Medical History Past Medical History: Hypertension Additional Past Medical History / Comment(s): Pt states about 6 months ago he had a liver problem that caused ascities/had paracentesis, past fall with head injury/scalp bleed that caused acute blood loss anemia/transfused History of Any Multi-Drug Resistant Organisms: None Reported Past Surgical History: No Surgical Hx Reported Past Anesthesia/Blood Transfusion Reactions: No Reported Reaction Past Psychological History: Anxiety, Depression, Panic Disorder, PTSD Smoking Status: Current every day smoker Past Alcohol Use History: Daily, Heavy Past Drug Use History: Cocaine, Marijuana - Past Family History Father Family Medical History: Cancer, Diabetes Mellitus Additional Family Medical History / Comment(s): LUNG CANCER Mother Family Medical History: Hypertension Additional Family Medical History / Comment(s): ANXIEY AND PANIC ATTACKS General Exam Limitations: no limitations Course Vital Signs 05/29/22 00:57 Temperature 98.1 F Pulse Rate 131 H Respiratory 26 H Rate Blood Pressure 90/56 O2 Sat by Pulse 99 Oximetry Disposition Clinical Impression: Chest pain, ST elevation myocardial infarction (STEMI), SVT (supraventricular tachycardia) Disposition: ADMITTED IP TO THIS [facility] Condition: Serious Is patient prescribed a controlled substance at d/c from ED?: No Referrals: Michell Lara [Primary Care Provider] - 1-2 days
[2022-05-29] MEDS ORDERED: HEPARIN SODIUM 1,000 UN/ML (10ML VL) IV ONE ×2 (01:28→02:15)
[2022-05-29] MEDS ORDERED: NITROGLYCERIN SL TABS 0.4 MG TAB SUBLINGUAL PRN (01:28)
[2022-05-29] MEDS ORDERED: ASPIRIN 81 MG PO STA (01:28)
[2022-05-29] MEDS ORDERED: HEPARIN SOD,PORK IN 0.45% NACL 25,000 UNIT in 0.45% NACL 1 250ML.BAG IV SCH (01:30)
[2022-05-29] MEDS ORDERED: METOPROLOL TARTRATE 5 MG/5 ML VIAL IVP STA (01:32)
[2022-05-29 01:33] LABS: Basophils # (A) 0.1 k/uL (0-0.2); Basophils % (A) 1 %; Eosinophils # (A) 0.2 k/uL (0-0.7); Eosinophils % (A) 2 %; HCT 45.3 % (39.0-53.0); HGB 14.4 gm/dL (13.0-17.5); Lymphocytes # (A) 3.1 k/uL (1.0-4.8); Lymphocytes % (A) 27 %; MCH 33.5 pg (25.0-35.0); MCHC 31.8 g/dL (31.0-37.0); MCV 105.3 fL (80.0-100.0); Macrocytosis Moderate; Mean Platelet Volume 11.1; Monocytes # (A) 0.8 k/uL (0-1.0); Monocytes % (A) 7 %; Neutrophils # (A) 7.1 k/uL (1.3-7.7); Neutrophils % (A) 61 %; RDW 14.7 % (11.5-15.5); WBC 11.5 k/uL (3.8-10.6)
[2022-05-29 01:41] LABS: Platelet Count 62 k/uL (150-450)
--- NOTE | 2022-05-29 01:41 | XR ---
EXAMINATION TYPE: XR chest 1V portable DATE OF EXAM: 05/29/2022 COMPARISON: 02/15/2022 HISTORY: Chest pain TECHNIQUE: FINDINGS: Heart and mediastinum are normal. Lungs are clear. Diaphragm is normal. Bony thorax appears normal. IMPRESSION: Normal chest. No change
[2022-05-29 01:43] LABS: ALT 75 U/L (4-49); AST 240 U/L (17-59); African American GFR (CKD) >90 (>60 ml/min/1.73 sqM); Alkaline Phosphatase 140 U/L (38-126); Anion Gap 16 mmol/L; Blood Urea Nitrogen 16 mg/dL (9-20); Calcium 9.1 mg/dL (8.4-10.2); Carbon Dioxide 22 mmol/L (22-30); Chloride 97 mmol/L (98-107); Glucose 118 mg/dL (74-99); Magnesium 1.8 mg/dL (1.6-2.3); Non-African American GFR(CKD) >90 (>60 ml/min/1.73 sqM); Phosphorus 3.5 mg/dL (2.5-4.5); Potassium 3.7 mmol/L (3.5-5.1); Sodium 135 mmol/L (137-145); Total Bilirubin 2.6 mg/dL (0.2-1.3); Total Protein 7.8 g/dL (6.3-8.2)
[2022-05-29 01:49] LABS: INR 1.6 (<1.2); Prothrombin Time 16.8 sec (9.0-12.0)
[2022-05-29] MEDS ORDERED: fentaNYL (PF) 50 MCG/ML 2 ML AMP ONE (02:05)
[2022-05-29] MEDS ORDERED: VERAPAMIL 2.5 MG/ML 2 ML AMP ONE (02:05)
[2022-05-29] MEDS ORDERED: HEPARIN SODIUM 1,000 UN/ML (10ML VL) ONE (02:05)
[2022-05-29] MEDS ORDERED: IV FLUID CONTINUATION 1,000 ML IV ONE ×2 (02:11)
[2022-05-29] MEDS ORDERED: fentaNYL (PF) 50 MCG/ML 2 ML AMP IVP ONE (02:11)
[2022-05-29] MEDS ORDERED: LIDOCAINE 1% INJ 10MG/ML (5 ML VIAL-PF) SQ ONE (02:12)
[2022-05-29] MEDS ORDERED: VERAPAMIL SYRINGE (5 MG/10 ML) INTRAARTER ONE (02:14)
[2022-05-29] MEDS ORDERED: IOPAMIDOL-370 125ML BTL INJ ONE (02:30)
[2022-05-29] MEDS ORDERED: RX INFO: IV CONTRAST WAS GIVEN 1 EACH MISC MISCELLANE PRN (02:42)
[2022-05-29] MEDS ORDERED: SODIUM CHLORIDE 0.9% 1,000 ML IV SCH (02:45)
--- NOTE | 2022-05-29 02:55 | P.CRDCN ---
History of Present Illness Consult date: 05/29/22 History of present illness: History of Present Illness: The patient is a 41-year-old male with known history of chronic tobacco use and hypertension who presented with symptoms of chest discomfort and palpitations. In the emergency room he was noted to be in SVT with retrograde P waves at a rate of 240. He received adenosine with restorationist of sinus mechanism. His subsequent EKG showed sinus mechanism with ST depression in the inferolateral leads. The patient had continued to have chest discomfort. According to him he had no prior history of arrhythmia. He is active physically. Today he had gotten home earlier from work had some spicy food and lay down when he woke up with a rapid heartbeat, abdominal and chest discomfort and heartburn. He felt dizzy but had no syncope. He has no prior history of PND, orthopnea or peripheral edema. He has no prior cardiac workup. His cardiac risk factors factors are remarkable for hypertension and chronic tobacco use about 20 pack a day. His social history is remarkable for drinking six packs a day and marij uana on a daily basis. He has a history of anxiety Medications: Amlodipine 5 mg daily, thiamine, protonix and Lexapro. Review of Systems: Respiratory: No history of asthma, bronchitis or recent cough. GI: No nausea or vomiting . No history of peptic ulcer disease. No recent GI bleed. : No hematuria or dysuria. Nervous System: No stroke or seizure. Physical Examination: 41-year-old male alert oriented anxious ,Blood pressure 140/70, Heart rate 90 Head: Normocephalic. Eyes: Sclerae nonicteric. Neck: Good carotid upstroke, no bruit, no jugular venous distention. Lungs: Clear to auscultation. Heart: Regular rate and rhythm, S1-S2, no S3, no rub. No murmur. Abdomen: Soft nontender, positive bowel sounds no organomegaly. Extremities: No edema, intact distal pulses. Labs: Hemoglobin 14.4, potassium 3.7, BUN 16, creatinine 1.0, troponin 0.027, AST 240, ALT 75, total bilirubin 2.6, NT proBNP 149 EKG: SVT at a rate of [address] changes subsequent EKG shows sinus mechanism with ST depression in leads 2, 3 aVF V5 and V6 Impression: 1. 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 Chest discomfort with EKG changes, rule out ischemic event 3. Chronic tobacco use 4. History of hypertension 5. Daily alcohol intake. Plan: 1. Proceed with emergent cardiac catheterization to rule out acute ischemic event 2. Obtain an echocardiogram with Doppler 3. Smoking and alcohol cessation 4. The plan as well as is the risks and the complications were discussed with the patient and his family, they are in agreement and understanding 5. Depending on the outcome of his cardiac catheterization further recommendations will be made. Thank you for this consult we will follow with you. Past Medical History Past Medical History: Hypertension Additional Past Medical History / Comment(s): Pt states about 6 months ago he had a liver problem that caused ascities/had paracentesis, past fall with head i njury/scalp bleed that caused acute blood loss anemia/transfused History of Any Multi-Drug Resistant Organisms: None Reported Past Surgical History: No Surgical Hx Reported Past Anesthesia/Blood Transfusion Reactions: No Reported Reaction Past Psychological History: Anxiety, Depression, Panic Disorder, PTSD Smoking Status: Current every day smoker Past Alcohol Use History: Daily, Heavy Past Drug Use History: Cocaine, Marijuana - Past Family History Father Family Medical History: Cancer, Diabetes Mellitus Additional Family Medical History / Comment(s): LUNG CANCER Mother Family Medical History: Hypertension Additional Family Medical History / Comment(s): ANXIEY AND PANIC ATTACKS Medications and Allergies Home Medications Medication Instructions Recorded Confirmed Type Metoclopramide [Reglan] 10 mg PO QID PRN 02/15/22 02/15/22 History amLODIPine [Norvasc] 5 mg PO DAILY 02/15/22 02/15/22 History Pantoprazole Sodium [Protonix] 40 mg PO AC-BRKFST 30 Days #30 tab 02/20/22 Rx Thiamine [Vitamin B-1] 100 mg PO BID-W/MEALS tab 02/20/22 Rx Allergies Allergy/AdvReac Type Severity Reaction Status Date / Time No Known Allergies Allergy Verified 05/29/22 01:02 Physical Exam Vitals: Vital Signs Temp Pulse Resp BP Pulse Ox 05/29/22 00:57 98.1 F 131 H 26 H 90/56 99 Intake and Output 05/28/22 05/28/22 05/29/22 14:59 22:59 06:59 Intake Total 150 Balance 150 Intake: IV 150 Other: Weight 96.615 kg Results 05/29/22 01:10 08/13/22 01:10 Cardiac Enzymes 05/29/22 05/29/22 Range/Units 01:10 01:10 AST 240 H (17-59) U/L Troponin I 0.027 (0.000-0.034) ng/mL Coagulation 05/29/22 Range/Units 01:10 PT 16.8 H (9.0-12.0) sec APTT 30.0 (22.0-30.0) sec CBC 05/29/22 Range/Units 01:10 WBC 11.5 H (3.8-10.6) k/uL RBC 4.30 (4.30-5.90) m/uL Hgb 14.4 (13.0-17.5) gm/dL Hct 45.3 (39.0-53.0) % Plt Count 62 L (150-450) k/uL Comprehensive Metabolic Panel 05/29/22 Range/Units 01:10 Sodium 135 L (137-145) mmol/L Potassium 3.7 (3.5-5.1) mmol/L Chloride 97 L (98-107) mmol/L Carbon Dioxide 22 (22-30) mmol/L BUN 16 (9-20) mg/dL Creatinine 1.00 (0.66-1.25) mg/dL Glucose 118 H (74-99) mg/dL Calcium 9.1 (8.4-10.2) mg/dL AST 240 H (17-59) U/L ALT 75 H (4-49) U/L Alkaline Phosphatase 140 H (38-126) U/L Total Protein 7.8 (6.3-8.2) g/dL Albumin 4.0 (3.5-5.0) g/dL Current Medications Generic Name Dose Route Start Last Admin Trade Name Freq PRN Reason Stop Dose Admin Aspirin 81 mg 05/30/22 09:00 Aspirin 81 Mg PO DAILY [facility] Diltiazem HCl 30 mg 05/29/22 02:45 Diltiazem Oral 30 Mg Tab PO TID [facility] Sodium Chloride 1,000 mls @ 20 mls/hr 05/29/22 01:30 Saline 0.9% IV .Q24H [facility] Heparin Sodium/Sodium Chloride 250 mls @ 10 mls/hr 05/29/22 01:30 25,000 unit/ Sodium Chloride IV .Q24H [facility] Protocol 10.3504 UNITS/KG/HR Sodium Chloride 1,000 mls @ 75 mls/hr 05/29/22 02:45 Saline 0.9% IV 05/29/22 06:04 .[id number] [facility] Miscellaneous Information 1 each 05/29/22 02:42 Rx Info: Iv Contrast Was Given 1 Each Mis MISCELLANE 05/31/22 02:42 DAILY PRN Per Protocol Morphine Sulfate 4 mg 05/29/22 01:28 Morphine Sulfate 4 Mg/Ml Syringe IV Q4HR PRN Chest Pain Nitroglycerin 0.4 mg 05/29/22 01:28 Nitroglycerin Sl Tabs 0.4 Mg Tab SUBLINGUAL Q5M PRN Chest Pain Pantoprazole Sodium 40 mg 05/29/22 07:30 Pantoprazole 40 Mg Tablet PO AC-BRKFST [facility] Thiamine HCl 100 mg 05/29/22 07:30 Thiamine 100 Mg Tab PO BID-W/MEALS [facility] Intake and Output 05/28/22 05/28/22 05/29/22 14:59 22:59 06:59 Intake Total 150 Balance 150 Intake: IV 150 Other: Weight 96.615 kg Patient Weight 05/29/22 06:59 Weight 96.615 kg 05/29/22 01:10 05/29/22 01:10
--- NOTE | 2022-05-29 02:59 | P.CARDCATH ---
Date of Procedure: 05/29/22 Description of Procedure: Cardiac Catheterization: The patient is a 41-year-old male who presented with SVT and post cardioversion he had significant ST segment depression with persistent chest discomfort. Recommendations were made regarding cardiac catheterization, the risks and the complications were discussed with the patient who is in full understanding and agreement. Procedure Description: Patient was brought to mechanical laboratory technician in fasting semi-sedated state after receiving Fentanyl and Benadryl achieiving moderate conscious sedated state. Using Xylocaine Anesthesia and Seldinger technique, a 6-Libyan sheath was introduced in the right radial artery . Subsequently, selective coronary angiography was performed using a 5-Libyan 3.5 bend Cyrus catheter. Multiple views of the coronary artery including hemiaxial views were obtained. The 5-Libyan Pigatail catheter was used to cross the aortic valve and LVEDP was calculated. Left ventriculogram was performed in the MYERS view. Following that, catheter and sheath were removed. Hemostasis was obtained with deployment of TR band . There was no immediate complication. Patient was returned to room in stable condition. Of note, the patient received a total of 2000 units of intravenous heparin as well as intra-arterial verapamil. Findings: Left main: This is a short sized vessel, large in caliber, bifurcating into left circumflex and LAD, left main is no high-grade stenosis. LAD: This is a large size vessel, giving rise to a very proximal large diagonal branch. The LAD and its branches had no evidence of high-grade stenosis Left circumflex: This is a large nondominant vessel, giving rise to a large obtuse marginal branch it has no evidence of high-grade stenosis. RCA: This is a large dominant vessel, bifurcating into PDA and PLV, the RCA and its branches have no evidence of obstructive CAD Left Ventriculogram: The ventricle size and systolic function are normal, ejection fraction is about 60%. There is no mitral regurgitation Hemodynamics: There was no gradient across the aortic valve, LVEDP was 8-10 mmHg Conclusion: 1. Normal coronary arteries 2. Right dominance 3. Normal left ventricular size and systolic function Recommendations: I have recommended smoking and alcohol cessation, if he has persistent recurrent episodes of SVT then ablation will be considered. The findings and the recommendations were discussed with the patient and the family and they were in full understanding and agreement. Duration of sedation is 20 minutes.
[2022-05-29 03:04] LABS: Glucose,Whole Blood 126 mg/dL (70-110)
[2022-05-29] MEDS: SODIUM CHLORIDE 0.9% 1,000 ML IV SCH (04:10)
[2022-05-29] MEDS: DILTIAZEM ORAL 30 MG TAB PO SCH ×4 (04:23→21:07)
--- NOTE | 2022-05-29 05:15 | P.HPIM ---
History of Present Illness H&P Date: 05/29/22 The patient is a 41-year-old male with a PMH of hypertension, tobacco abuse, and alcohol abuse who presented to the emergency room with complaints of chest pain. The patient reported that he was in his usual state of health until about 11 PM tonight, roughly 2 hours after he took Viagra when he suddenly woke up with chest discomfort or shortness of breath. The patient reported that the pain was 10 out of 10, substernal, nonradiating, with severe dyspnea at rest. Reported associated dizziness. Denied history of arrhythmias or heart disease. In the emergency room, he was noted to be in SVT at rate of 240, for which she was given adenosine IV push with subsequent reversion to sinus rhythm. EKG then showed ST depression for which cardiology was consulted and the patient was taken to the Neurological Surgery Teacher. On the cardiac catheterization, coronary's were noted to be normal with normal LV size and function. The patient was seen postoperatively on the surgical unit. He reported no further chest discomfort and denied any additional complaints. Denies definitive fever, chills, cough, sore throat, nausea, vomiting. Review of systems: Pertinent positives and negatives as discussed in HPI, a complete review of systems was performed and all other systems are negative. Physical examination: General: non toxic, no distress, appears at stated age, overweight Derm: no unusual rashes/lesions, warm Head: atraumatic, normocephalic, symmetric Eyes: EOMI, no lid lag, anicteric sclera, pupils equal round reactive to light ENT: Nose and ears atraumatic Neck: No cervical lymphadenopathy, trachea midline, supple Mouth: no lip lesion, mucus membranes moist Cardiovascular: S1S2 reg, no murmur, positive dorsalis pedis pulse bilateral, no edema Lungs: CTA bilateral, no rhonchi, no rales, no accessory muscle use Abdominal: soft, nontender to palpation, no guarding Ext: muscle strength 5 out of 5 in all 4 extremities grossly, no gross muscle atrophy, no contractures, Neuro: CN II-XI grossly intact, no gross focal neuro deficits Psych: Alert, oriented, appropriate affect Assessment/plan SVT status post cardiac cath -Advised on importance of cessation from tobacco and alcohol use -Patient was counseled by cardiology for possible ablation if SVT recurs -Cardiology following -Cardiac monitoring -Echocardiogram ordered -Follow-up thyroid studies Abnormal LFTs -Suspected secondary to ongoing EtOH use -Patient reports drinking multiple 12 ounce cans of beers daily. -Obtain right upper quadrant ultrasound Macrocytosis -Check B12 and folate levels Thrombocytopenia, likely secondary to ongoing alcohol abuse -Monitor for now DVT prophylaxis -IPCDs The patient is admitted with an anticipated less than 2 midnight stay for evaluation of SVT CODE STATUS: Full Code Discussed with: Patient Anticipated discharge date: in am Anticipated discharge place: Home Past Medical History Past Medical History: Hypertension Additional Past Medical History / Comment(s): Pt states about 6 months ago he had a liver problem that caused ascities/had paracentesis, past fall with head injury/scalp bleed that caused acute blood loss anemia/transfused History of Any Multi-Drug Resistant Organisms: None Reported Past Surgical History: No Surgical Hx Reported Past Anesthesia/Blood Transfusion Reactions: No Reported Reaction Past Psychological History: Anxiety, Depression, Panic Disorder, PTSD Smoking Status: Current every day smoker Past Alcohol Use History: Daily, Heavy Past Drug Use History: Cocaine, Marijuana - Past Family History Father Family Medical History: Cancer, Diabetes Mellitus Additional Family Medical History / Comment(s): LUNG CANCER Mother Family Medical History: Hypertension Additional Family Medical History / Comment(s): ANXIEY AND PANIC ATTACKS Medications and Allergies Home Medications Medication Instructions Recorded Confirmed Type Metoclopramide [Reglan] 10 mg PO QID PRN 02/15/22 02/15/22 History amLODIPine [Norvasc] 5 mg PO DAILY 02/15/22 02/15/22 History Pantoprazole Sodium [Protonix] 40 mg PO AC-BRKFST 30 Days #30 tab 02/20/22 Rx Thiamine [Vitamin B-1] 100 mg PO BID-W/MEALS tab 02/20/22 Rx Allergies Allergy/AdvReac Type Severity Reaction Status Date / Time No Known Allergies Allergy Verified 05/29/22 01:02 Physical Exam Vitals: Vital Signs Temp Pulse Resp BP Pulse Ox 05/29/22 05:00 81 14 139/86 94 L 05/29/22 04:50 77 25 H 93 L 05/29/22 04:40 80 8 L 132/71 94 L 05/29/22 04:30 78 8 L 97 05/29/22 04:20 79 17 130/80 96 05/29/22 04:10 79 10 L 123/75 96 05/29/22 04:00 98.4 F 79 12 131/77 94 L 05/29/22 03:50 81 5 L 94 L 05/29/22 03:40 92 20 135/84 96 05/29/22 03:30 85 108 H 93 L 05/29/22 03:23 84 6 L 124/88 96 05/29/22 03:10 89 24 129/78 96 05/29/22 03:00 97.8 F 87 4 L 132/80 94 L 05/29/22 01:48 97.8 F 12 05/29/22 00:57 98.1 F 131 H 26 H 90/56 99 Intake and Output 05/28/22 05/28/22 05/29/22 14:59 22:59 06:59 Intake Total 375 Output Total 300 Balance 75 Intake: IV 150 Intake, IV Titration 225 Amount Sodium Chloride 0.9% 1, 225 000 ml @ 75 mls/hr IV . [id number] [facility] Rx#:[id number] Output: Urine 300 Other: Voiding Method Urinal # Voids 1 Weight 96.615 kg Results CBC & Chem 7: 05/29/22 01:10 05/29/22 01:10 Labs: Abnormal Lab Results - Last 24 Hours (Table) 05/29/22 05/29/22 05/29/22 Range/Units 01:10 01:10 01:10 WBC 11.5 H (3.8-10.6) k/uL MCV 105.3 H (80.0-100.0) fL Plt Count 62 L (150-450) k/uL PT 16.8 H (9.0-12.0) sec INR 1.6 H (<1.2) Sodium 135 L (137-145) mmol/L Chloride 97 L (98-107) mmol/L Glucose 118 H (74-99) mg/dL POC Glucose (mg/dL) (70-110) mg/dL Total Bilirubin 2.6 H (0.2-1.3) mg/dL AST 240 H (17-59) U/L ALT 75 H (4-49) U/L Alkaline Phosphatase 140 H (38-126) U/L 05/29/22 Range/Units 03:02 WBC (3.8-10.6) k/uL MCV (80.0-100.0) fL Plt Count (150-450) k/uL PT (9.0-12.0) sec INR (<1.2) Sodium (137-145) mmol/L Chloride (98-107) mmol/L Glucose (74-99) mg/dL POC Glucose (mg/dL) 126 H (70-110) mg/dL Total Bilirubin (0.2-1.3) mg/dL AST (17-59) U/L ALT (4-49) U/L Alkaline Phosphatase (38-126) U/L Thrombosis Risk Factor Assmnt - Choose All That Apply Each Factor Represents 1 point: Acute HI Thrombosis Risk Factor Assessment Total Risk Factor Score: 1 Thrombosis Risk Factor Assessment Level: Low Risk
[2022-05-29] MEDS: PANTOPRAZOLE 40 MG TABLET PO SCH (06:31)
[2022-05-29] MEDS: THIAMINE 100 MG TAB PO SCH ×2 (06:31→16:25)
[2022-05-29] MEDS ORDERED: METOPROLOL TARTRATE 25 MG TAB PO SCH (09:00)
--- NOTE | 2022-05-29 09:07 | US ---
EXAMINATION TYPE: US abdomen limited DATE OF EXAM: 05/29/2022 COMPARISON: 02/15/2022 CLINICAL HISTORY: 41-year-old male pain, RUQ for liver eval. TECHNIQUE: Multiple sonographic images of the right upper quadrant are obtained. FINDINGS: EXAM MEASUREMENTS: Liver Length: 20.4 cm Gallbladder Wall: 0.3 cm CBD: 0.4 cm Right Kidney: 12.3 x 5.0 x 5.8 cm Mechanical Shop Laborer notes: Exam done portable Pancreas: Only portions of the pancreatic body are seen. Head and tail obscured by bowel gas shadowi ng. Liver: Enlarged but with overall homogeneous appearance. There may be slight increased echogenicity. No focal lesion seen. Gallbladder: wnl Evidence for sonographic Hightower's sign: no CBD: wnl Right Kidney: wnl IMPRESSION: 1. Hepatomegaly (20.4 cm). There may be mild fatty infiltration. Correlate with LFTs, lipid profile, and patient risk factors. 2. No gallstones or biliary ductal dilatation.
[2022-05-29] MEDS: MORPHINE SULFATE 4 MG/ML SYRINGE IV PRN ×2 (14:20→19:44)
--- NOTE | 2022-05-29 15:38 | CA ---
Transthoracic Echo Report Name: Jerome Agosto Age: 41 Gender: M : 1980 Exam Date: 05/29/2022 07:49 Exam Location: [facility] Ht (in): 74 Wt (lb): 213 Ordering Physician: Marco A Cerda MD ([id number]) Attending/Referring Phys: Associate Scientist Tiffanie Tong RDCS Procedure CPT: Indications: svt Cardiac Hx: Technical Quality: Fair Contrast 1: Total Dose (mL): Contrast 2: Total Dose (mL): MEASUREMENTS (Male / Female) Normal Values 2D ECHO LV Diastolic Diameter PLAX 4.5 cm 4.2 - 5.9 / 3.9 - 5.3 cm LV Systolic Diameter PLAX 2.3 cm IVS Diastolic Thickness 1.6 cm 0.6 - 1.0 / 0.6 - 0.9 cm LVPW Diastolic Thickness 1.8 cm 0.6 - 1.0 / 0.6 - 0.9 cm LV Relative Wall Thickness 0.8 RV Internal Dim ED PLAX 4.2 cm LA Volume 106.9 cm??? 18 - 58 / 22 - 52 cm??? M-MODE Aortic Root Diameter MM 3.2 cm LA Systolic Diameter MM 4.0 cm LA Ao Ratio MM 1.2 AV Cusp Separation MM 2.0 cm DOPPLER AV Peak Velocity 159.3 cm/s AV Peak Gradient 10.1 mmHg LVOT Peak Velocity 138.7 cm/s LVOT Peak Gradient 7.7 mmHg MV Area PHT 4.7 cm??? Mitral E Point Velocity 96.4 cm/s Mitral A Point Velocity 85.3 cm/s Mitral E to A Ratio 1.1 MV Deceleration Time 162.4 ms MV E' Velocity 14.4 cm/s Mitral E to MV E' Ratio 6.7 TR Peak Velocity 270.6 cm/s TR Peak Gradient 29.3 mmHg Right Ventricular Systolic Press 33.9 mmHg FINDINGS Left Ventricle Moderately increased left ventricular wall thickness. Normal left ventricular systolic function with no obvious regional wall motion abnormalities. Left ventricular ejection fraction is estimated at 55-60 %. Right Ventricle Moderate right ventricular dilatation. Right ventricular systolic pressure within normal limits. Right Atrium Normal right atrial size. Left Atrium Severely increased left atrial volume. Mobile Interatrial septal . Mitral Valve Structurally normal mitral valve. Mild mitral regurgitation. Aortic Valve Trileaflet aortic valve. No aortic valve stenosis or regurgitation. Tricuspid Valve Structurally normal tricuspid valve. Mild tricuspid regurgitation. Pulmonic Valve Trace pulmonic regurgitation. Pericardium No pericardial effusion. Aorta Normal size aortic root and proximal ascending aorta. CONCLUSIONS 1. Normal left ventricular size and systolic function 2. Concentric left ventricle hypertrophy 3. Dilated right ventricle 4. Mild mitral and tricuspid regurgitation Previewed by: Dr. Marco A Cerda MD (Electronically Signed) Final Date: 29 May 2022 15:37
[2022-05-30 00:21] VITALS: TEMP 98.6
[2022-05-30] MEDS: SODIUM CHLORIDE 0.9% 1,000 ML IV SCH (00:59)
[2022-05-30] MEDS: MORPHINE SULFATE 4 MG/ML SYRINGE IV PRN ×2 (03:05→09:02)
[2022-05-30 04:22] VITALS: BP 152/84; PULSE 64; RESP 12
[2022-05-30] MEDS: THIAMINE 100 MG TAB PO SCH (06:43)
[2022-05-30] MEDS: PANTOPRAZOLE 40 MG TABLET PO SCH (06:43)
[2022-05-30 07:01] LABS: ALT 64 U/L (4-49); AST 171 U/L (17-59); African American GFR (CKD) >90 (>60 ml/min/1.73 sqM); Albumin 3.4 g/dL (3.5-5.0); Alkaline Phosphatase 112 U/L (38-126); Anion Gap 8 mmol/L; Blood Urea Nitrogen 9 mg/dL (9-20); Calcium 8.3 mg/dL (8.4-10.2); Carbon Dioxide 28 mmol/L (22-30); Chloride 99 mmol/L (98-107); Glucose 125 mg/dL (74-99); Non-African American GFR(CKD) >90 (>60 ml/min/1.73 sqM); Potassium 3.5 mmol/L (3.5-5.1); Sodium 135 mmol/L (137-145); Total Bilirubin 3.8 mg/dL (0.2-1.3); Total Protein 7.2 g/dL (6.3-8.2)
[2022-05-30] MEDS ORDERED: ASPIRIN 81 MG PO SCH (09:00)
[2022-05-30] MEDS ORDERED: ASPIRIN 325 MG TAB PO SCH (09:00)
[2022-05-30] MEDS: DILTIAZEM ORAL 30 MG TAB PO SCH (09:02)
[2022-05-30] MEDS ORDERED: METOCLOPRAMIDE 10 MG TAB PO PRN (09:53)
[2022-05-30] MEDS ORDERED: DILTIAZEM CD 120 MG CAP.ER.24H PO SCH (10:15)
[2022-05-30 10:42] LABS: Basophils % (A) 1 %; Eosinophils # (A) 0.2 k/uL (0-0.7); Eosinophils % (A) 3 %; HCT 44.5 % (39.0-53.0); HGB 14.1 gm/dL (13.0-17.5); Lymphocytes # (A) 1.4 k/uL (1.0-4.8); Lymphocytes % (A) 22 %; MCH 34.4 pg (25.0-35.0); MCHC 31.6 g/dL (31.0-37.0); MCV 108.9 fL (80.0-100.0); Macrocytosis Marked; Mean Platelet Volume 13.5; Monocytes # (A) 0.5 k/uL (0-1.0); Monocytes % (A) 8 %; Neutrophils # (A) 4.1 k/uL (1.3-7.7); Neutrophils % (A) 64 %; RBC 4.09 m/uL (4.30-5.90); RDW 14.7 % (11.5-15.5); WBC 6.4 k/uL (3.8-10.6)
--- NOTE | 2022-05-30 11:10 | P.PN ---
Subjective Progress Note Date: 05/30/22 PROGRESS NOTE The patient presented yesterday with evidence of AV vadim reentry tachycardia, chest discomfort and EKG changes. He converted back to sinus mechanism. Because of his chest discomfort and EKG changes he underwent cardiac catheterization that showed no evidence of high-grade stenosis. He underwent an echocardiogram yesterday that showed a preserved ventricle size and systolic function. He remains in sinus mechanism. He has mild achiness in the chest, no dyspnea no dizziness or palpitations. Medications: Cardizem 30 mg 3 times a day, aspirin once a day, thiamine PHYSICAL EXAMINATION: Blood pressure 136/70 heart rate 60 LUNGS: Clear to auscultation HEART: Regular rate and rhythm, S1, S2. No S3. No systolic murmur ABDOMEN: Soft, nontender, no organomegaly EXTREMETIES: No edema, right radial pulse intact LAB: Hemoglobin 14.1, potassium 3.5, creatinine 0.72 IMPRESSION: 1. AV vadim reentry tachycardia cardioverted with adenosine 2. Chest discomfort with no evidence of high-grade stenosis 3. Mild troponin elevation related to the arrhythmia 4. Chronic tobacco and alcohol intake PLAN: 1. Changed to long acting Cardizem 2. Increase physical activity 3. Probable discharge home today 4. Smoking and alcohol cessation Objective - Vital Signs Vital signs: Vital Signs Temp 98.6 F 05/30/22 04:00 Pulse 64 05/30/22 04:00 Resp 12 05/30/22 04:00 BP 152/84 05/30/22 04:00 Pulse Ox 96 05/30/22 01:28 FiO2 Intake & Output 05/29/22 05/30/22 05/30/22 18:59 06:59 18:59 Intake Total 4875 1620 504 Output Total 1603 2700 Balance 3272 -1080 504 Weight 91 kg Intake: IV 225 Sodium Chloride 0.9% 1, 225 000 ml @ 75 mls/hr IV . [id number] [facility] Rx#:[id number] Oral 4650 1620 504 Output: Urine 1600 2700 Stool 3 Other: Voiding Method Urinal Urinal Urinal # Voids 1 2 1 # Bowel Movements 1 - Labs CBC & Chem 7: 05/30/22 06:34 05/30/22 06:34 Labs: Abnormal Lab Results - Last 24 Hours (Table) 05/29/22 05/30/22 05/30/22 Range/Units 05:48 06:34 06:34 RBC 4.09 L (4.30-5.90) m/uL MCV 108.9 H (80.0-100.0) fL Macrocytosis Marked A Sodium 135 L (137-145) mmol/L Glucose 125 H (74-99) mg/dL Calcium 8.3 L (8.4-10.2) mg/dL Total Bilirubin 3.8 H (0.2-1.3) mg/dL AST 171 H (17-59) U/L ALT 64 H (4-49) U/L Albumin 3.4 L (3.5-5.0) g/dL Vitamin B12 1159.0 H (200.0-944.0) pg/mL
--- NOTE | 2022-05-30 11:40 | P.DS ---
Providers Date of admission: 05/29/22 01:28 Expected date of discharge: 05/30/22 Attending physician: Brown Hanna MD Consults: 05/29/22 01:28 Consult Physician Urgent Consulting Provider: Marco A Cerda Consult Reason/Comments: stemi Do you want consulting provider notified?: Yes Primary care physician: [facility] Course: SVT status post cardiac cath Abnormal LFTs Macrocytosis Thrombocytopenia, likely secondary to ongoing alcohol abuse The patient is a 41-year-old male with a PMH of hypertension, tobacco abuse, and alcohol abuse who presented to the emergency room with complaints of chest pain. In the emergency room, he was noted to be in SVT at rate of 240, for which she was given adenosine IV push 6 mg once, 12 mg once, 12 mg a second time, then was cardioverted with subsequent reversion to sinus rhythm. EKG then showed ST depression for which cardiology was consulted and the patient was taken to the [facility]. On the cardiac catheterization, coronary's were noted to be normal with normal LV size and function. The patient was seen postoperatively on the surgical unit. He reported no further chest discomfort and denied any additiona l complaints. He was followed for an additional 24 hours to ensure no recurrence of arrhythmia and remained in sinus rhythm. He was counseled on cessation of alcohol, tobacco, caffeine. He was started on diltiazem. He will follow-up with cardiology in 1 week. Incidental findings on his labs weren't elevated bilirubin and liver enzymes in the background of being started on minocycline for acne recently as well as EtOH abuse. JOVANNA is pending at the time of discharge, but I advised that he discontinue this medication until he can follow up with his primary care physician. I spent 33 minutes coordinating this discharge, discharge date 05/30 Gen: awake, alert HEENT: normocephalic, atraumatic, good hearing acuity, moist mucous membranes Resp: good air exchange, breathing comfortably with no accessory muscle use CVS: good distal perfusion x 4, GI: soft, NTTP, ND : no SPT, no CVAT, burrows catheter not present MSK: no pitting edema, no clubbing Neuro: non-focal, moving all extremities Psych: cooperative, euthymic mood Patient Condition at Discharge: Good Plan - Discharge Summary Discharge Rx Participant: Yes New Discharge Prescriptions: New Diltiazem Cd [Cardizem CD] 120 mg PO DAILY #30 cap Continue Metoclopramide [Reglan] 10 mg PO QID PRN PRN Reason: CRAMPING Thiamine [Vitamin B-1] 100 mg PO BID-W/MEALS tab Venlafaxine HCl [Effexor] 75 mg PO DAILY metroNIDAZOLE 0.75% CREAM [Metrocream 0.75%] 1 applic TOPICAL BID Hydrocortisone Cream [Hydrocortisone 2.5% Cream] 1 applic TOPICAL BID PRN PRN Reason: [id number] if flare up Cholecalciferol [Vitamin D3 (25 Mcg = 1000 Iu)] 25 mcg PO DAILY Discontinued amLODIPine [Norvasc] 5 mg PO DAILY Minocycline HCl [Minocin] 100 mg PO DAILY Sildenafil Citrate [Viagra] 25 mg PO DAILY PRN PRN Reason: e.d. Discharge Medication List Metoclopramide [Reglan] 10 mg PO QID PRN 02/15/22 [History] Thiamine [Vitamin B-1] 100 mg PO BID-W/MEALS tab 02/20/22 [Rx] Cholecalciferol [Vitamin D3 (25 Mcg = 1000 Iu)] 25 mcg PO DAILY 05/29/22 [History] Hydrocortisone Cream [Hydrocortisone 2.5% Cream] 1 applic TOPICAL BID PRN 05/29/22 [History] Venlafaxine HCl [Effexor] 75 mg PO DAILY 05/29/22 [History] metroNIDAZOLE 0.75% CREAM [Metrocream 0.75%] 1 applic TOPICAL BID 05/29/22 [History] Diltiazem Cd [Cardizem CD] 120 mg PO DAILY #30 cap 05/30/22 [Rx] Follow up Appointment(s)/Referral(s): Marco A Cerda MD [STAFF PHYSICIAN] - 1 Week (Call tomorrow to schedule follow up. Notify the office staff you had a heart cath while admitted. ) Michell Lara [Primary Care Provider] - 1-2 days (Call tomorrow to schedule follow up ) Patient Instructions/Handouts: *Surgery [facility] - After Heart Catheterization - Product Builder Instructions, Diltiazem (By mouth), Supraventricular Tachycardia (IP) Activity/Diet/Wound Care/Special Instructions: - No driving for one week or until physician gives OK - No lifting more than 5 pounds for one week -Keep the cath site clean and dry -Shower everyday with antibacterial soap -No creams,lotions or ointments on your wrist. -No soaking in a bath, hot tube, jacuzzi or go in a roche for one week Discharge Disposition: HOME SELF-CARE
[2022-05-30 12:02] LABS: Large Platelets Present; Platelet Count 41 k/uL (150-450)
[2022-05-30 12:03] LABS: Anisocytosis (M) Present; Poikilocytosis (M) Present; Stomatocytes Present; Target Cells Present
[2022-05-30 12:39] LABS: Chol/HDL Ratio 6.65 Ratio; LDL Cholesterol,Calculated 72.4 mg/dL (0.0-131.0)
[2022-05-31] MEDS ORDERED: VENLAFAXINE HCL 75 MG TAB PO SCH (09:00)
[2022-05-31] MEDS ORDERED: CHOLECALCIFEROL 25 MCG (1000 IU) TABLET PO SCH (09:00)
== END 2022-05-30 12:12 | disposition home or self-care (01) | DRG 281 ==
LOC: EC 00:53 → 2SICU 01:28 → 3SCARD 05-30 07:54
PROVIDERS: ADMIT Internal Medicine; ATTEND Internal Medicine
PROC: B2151ZZ Fluoroscopy of Left Heart using Low Osmolar Contrast (ICD-10-PCS; 2022-05-29)
PROC: B2111ZZ Fluoroscopy of Multiple Coronary Arteries using Low Osmolar Contrast (ICD-10-PCS; principal; 2022-05-29 01:55)
DX: I21.3 ST elevation (STEMI) myocardial infarction of unspecified site (principal); I47.1 Supraventricular tachycardia; F10.10 Alcohol abuse, uncomplicated; F17.210 Nicotine dependence, cigarettes, uncomplicated; R74.01 Elevation of levels of liver transaminase levels; F32.A Depression, unspecified; F41.0 Panic disorder [episodic paroxysmal anxiety]; I08.1 Rheumatic disorders of both mitral and tricuspid valves; Z79.899 Other long term (current) drug therapy; D75.89 Other specified diseases of blood and blood-forming organs; F43.10 Post-traumatic stress disorder, unspecified; I10 Essential (primary) hypertension; D69.59 Other secondary thrombocytopenia; Z71.6 Tobacco abuse counseling; Z71.41 Alcohol abuse counseling and surveillance of alcoholic
CPT/HCPCS: 36415; 71045; 76705; 80053; 80061; 82607; 82747; 83735; 83880; 84100; 84443; 84484; 85025; 85610; 85730; 86038; 93005; 93306; 93458; 99285

== ENCOUNTER 2022-06-15 10:30 | Day surgery (SDC) | payer OTHER ==
[2022-06-15] MEDS ORDERED: LACTATED RINGERS 1,000 ML IV SCH (11:04)
[2022-06-15 11:18] VITALS: RESP 16; TEMP 98
[2022-06-15] MEDS ORDERED: fentaNYL (PF) 50 MCG/ML 2 ML AMP ONE (12:02)
[2022-06-15] MEDS ORDERED: MIDAZOLAM 2 MG/2 ML VIAL ONE (12:02)
[2022-06-15] MEDS ORDERED: PROPOFOL 10 MG/ML 20 ML VIAL IV ONE (12:02)
--- NOTE | 2022-06-15 12:27 | P.PCN ---
Date of Procedure: 06/15/22 Procedure(s) Performed: Brief history: Patient is a pleasant 41-year-old white male scheduled for an elective upper endoscopy as well as colonoscopy as a part of evaluation of severe GERD, abdominal pain, throat discomfort and change in bowel habits. Also has been complaining of intermittent dark stool. Procedure performed: Esophagogastroduodenoscopy with biopsy Colonoscopy Preoperative diagnosis: GERD/abdominal pain/throat discomfort Change in bowel habits and intermittent dark stools Anesthesia: [facility] Procedure: After informed consent was obtained from the patient was brought into the endoscopy unit and IV sedation was administered by anesthesia under continuous monitoring. Initially upper endoscopy was done. The Olympus GF 160 video endoscope was inserted inserted into the mouth and esophagus intubated without any difficulty and was gradually advanced into the stomach and duodenum and carefully examined. The bulb and second part of the duodenum appeared normal. The scope was then withdrawn into the stomach adequately insufflated with air and upon careful examination the antrum had diffuse gastritis and biopsies were done from this area. body, cardia and fundus appeared normal. The scope was then withdrawn into the esophagus. Small hiatal hernia noted. The GE junction was located at 40 cm to the incisors. There were linear erosions in the distal esophagus with some ulcerations and friable mucosa consistent with LA grade C reflux esophagitis Rest of the esophagus appeared normal. Patient tolerated the procedure well. At this time the patient continued to remain sedation. Initial digital rectal examination was normal. Olympus CF 160 video colonoscope was then inserted into the rectum and gradually advanced to the cecum without any difficulty. Careful examination was performed as the scope was gradually being withdrawn. The prep was excellent. The cecum, ascending colon, transverse colon, descending colon, sigmoid colon and rectum appeared normal. Scattered diverticulosis seen. Retroflexion was performed in the rectum and no lesions were noted. Patient tolerated the procedure well. Impression: 1. Upper endoscopy revealed mild antral gastritis, small hiatal hernia and LA grade C reflux esophagitis 2. Colonoscopy was within normal limits with no evidence of colorectal neoplasia. Scattered sigmoid diverticulosis. Recommendations: Findings of this examination were discussed with the patient as well as his family. He was advised to follow with the biopsy results. Start Prilosec 20 mg twice daily for severe reflux esophagitis. He was briefly educated about diet modification antireflux measures.
[2022-06-15 12:56] VITALS: BP 145/81; PULSE 77
== END 2022-06-15 13:12 | disposition home or self-care (01) ==
LOC: ORWHC2ENDO 10:30
PROVIDERS: ATTEND Internal Medicine Gastroenterology
DX: K21.00 Gastro-esophageal reflux disease with esophagitis, without bleeding (principal); K29.50 Unspecified chronic gastritis without bleeding; K57.30 Diverticulosis of large intestine without perforation or abscess without bleeding; K44.9 Diaphragmatic hernia without obstruction or gangrene; F41.9 Anxiety disorder, unspecified; F32.A Depression, unspecified; F17.200 Nicotine dependence, unspecified, uncomplicated; K74.60 Unspecified cirrhosis of liver; Z79.899 Other long term (current) drug therapy; Z80.1 Family history of malignant neoplasm of trachea, bronchus and lung; Z83.3 Family history of diabetes mellitus; Z82.49 Family history of ischemic heart disease and other diseases of the circulatory system; Z81.8 Family history of other mental and behavioral disorders
CPT/HCPCS: 88305; 45378; 43239; J2250; J3010; J2704

== ENCOUNTER → 2022-07-19 | Outpatient (CLI) | payer OTHER ==
[2022-07-19 18:23] LABS: Luteinizing Hormone 4.9 mIU/mL
[2022-07-19 18:24] LABS: Prolactin 4.2 ng/mL (2.100-17.700)
== END | disposition home or self-care (01) ==
LOC: LABWHC1 12:38
PROVIDERS: ATTEND Urology
DX: R68.82 Decreased libido (principal)
CPT/HCPCS: 36415; 83002; 84146; 84402; 84403

== ENCOUNTER 2022-11-10 11:27 | Emergency (ER) | payer OTHER ==
[2022-11-10 11:36] VITALS: BP 159/92; PULSE 96; RESP 18; TEMP 98.6
--- NOTE | 2022-11-10 12:20 | XR ---
EXAMINATION TYPE: XR wrist complete LT DATE OF EXAM: 11/10/2022 COMPARISON: None HISTORY: Pain, deformity TECHNIQUE: 4 views left wrist FINDINGS: No acute displaced fractures are evident. Soft tissues are normal. Joint spaces appear pres erved. If there is pain at the anatomic snuff box, nuclear medicine bone scan could BE performed for additio nal evaluation. Follow up exams can be performed 7-10 days from acute trauma for continued pain. IMPRESSION: 1. No acute osseous abnormality left breast
--- NOTE | 2022-11-10 12:58 | ED ---
General Adult HPI - General Chief complaint: Extremity Problem,Nontraumatic Stated complaint: L wrist injury Time Seen by Provider: 11/10/22 11:58 Source: patient Mode of arrival: ambulatory - History of Present Illness Initial comments: Dictation was produced using AT Internet dictation software. please excuse any grammatical, word or spelling errors. Chief Complaint: 42-year-old male presents emergency department for lateral wrist pain History of Present Illness: This is a 42-year-old male presents to the emergency Department for left wrist pain. 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 He went to grab something blew forcefully and shortly after began having severe left lateral wrist pain. Patient states that he feels like his hand is normal. States that is painful whenever he moves his thumb. The ROS documented in this emergency department record has been reviewed and confirmed by me. Those systems with pertinent positive or negative responses have been documented in the HPI. All other systems are other negative and/or noncontributory. PHYSICAL EXAM: General Impression: Alert and oriented x3, not in acute distress HEENT: Normocephalic atraumatic, extra-ocular movements intact, pupils equal and reactive to light bilaterally, mucous membranes moist. Cardiovascular: Heart regular rate and rhythm Chest: Able to complete full sentences, no retractions, no tachypnea Musculoskeletal: no peripheral edema Left upper extremity: There is palpatory tenderness to the left lateral wrist over the lateral radius. Pain is reproducible with medial adduction. 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 Patient has no palpatory tenderness over the scaphoid tubercle, anatomic snuffbox and no pain with anatomical loading at the base of the left thumb. Motor: no focal deficits noted Neurological: CN II-XII grossly intact, no focal motor or sensory deficits noted Skin: Intact with no visualized rashes Psych: Normal affect and mood ED course: 42-year-old male presents to the emergency department for atraumatic left wrist injury. Vital signs upon arrival are within acceptable limits. X-ra ys unremarkable. Clinical presentation concerning for de Quervain's tenosynovitis. Nursing notes and chart review was performed X-rays unremarkable for any acute osseous processes. Was pt. sent in by a medical professional or institution (, PA, MACHINE CLOTH EXAMINER, urgent care, hospital, or usp...) When possible be specific @ -No Did you speak to anyone other than the patient for history (EMS, parent, family, police, friend...)? What history was obtained from this source @ -Significant other at the bedside Did you review nursing and triage notes (agree or disagree)? Why? @ -I reviewed and agree with nursing and triage notes Were old charts reviewed (outside hosp., previous admission, EMS record, old EKG, old radiological studies, urgent care reports/EKG's, usp records)? Report findings @ -No old charts were reviewed Differential Diagnosis (chest pain, altered mental status, abdominal pain women, abdominal pain men, vaginal bleeding, weakness, fever, dyspnea, syncope, headache, dizziness, GI bleed, back pain, seizure, CVA, palpatations, mental health)? @ -not applicable EKG interpreted by me (3pts min.). @ -None done X-rays interpreted by me (1pt min.). @ -See Above CT interpreted by me (1pt min.). @ -None done U/S interpreted by me (1pt. min.). @ -None done What testing was considered but not performed or refused? (CT, X-rays, U/S, labs)? Why? @ -See above What meds were considered but not given or refused? Why? @ -None Did you discuss the management of the patient with other professionals (professionals i.e. , PA, MACHINE CLOTH EXAMINER, lab, RT, psych nurse, social work professor, worship pastor, teacher, corporate banking officer, counter caser)? Give summary @ -None Was smoking cessation discussed for >3mins.? @ -No Was critical care preformed (if so, how long)? @ -No Were there social determinants of health that impacted care today? How? (Home lessness, low income, unemployed, alcoholism, drug addiction, transportation, low edu. Level, literacy, decrease access to med. care, penitentiary, rehab)? @ -No Was there de-escalation of care discussed even if they declined (Discuss DNR or withdrawal of care, Hospice)? DNR status @ -No What co-morbidities impacted this encounter? (DM, HTN, Smoking, COPD, CAD, Cancer, CVA, ARF, Chemo, Hep., AIDS, mental health diagnosis, sleep apnea, morbid obesity)? @ -None Was patient admitted / discharged? Hospital course, mention meds given and route, prescriptions, significant lab abnormalities, going to OR and other pertinent info. @ -See above Undiagnosed new problem with uncertain prognosis? @ -No Drug Therapy requiring intensive monitoring for toxicity (Heparin, Nitro, Insulin, Cardizem)? @ -No Were any procedures done? @ -No Diagnosis/symptom? @ -Acute wrist strain Acute, or Chronic, or Acute on Chronic? @ -Acute Uncomplicated (without systemic symptoms) or Complicated (systemic symptoms)? @ -Uncomplicated Side effects of treatment? @ -No Exacerbation, Progression, or Severe Exacerbation? @ -No Poses a threat to life or bodily function? How? (Chest pain, USA, [place], pneumonia, PE, COPD, DKA, ARF, appy, cholecystitis, CVA, Diverticulitis, Homicidal, Suicidal, threat to staff... and all critical care pts) @ -No - Related Data Home Medications Medication Instructions Recorded Confirmed Metoclopramide [Reglan] 10 mg PO QID PRN 02/15/22 06/15/22 Cholecalciferol [Vitamin D3 (25 25 mcg PO DAILY 05/29/22 06/15/22 Mcg = 1000 Iu)] Hydrocortisone Cream 1 applic TOPICAL BID PRN 05/29/22 06/15/22 [Hydrocortisone 2.5% Cream] Venlafaxine HCl [Effexor] 75 mg PO DAILY 05/29/22 06/15/22 metroNIDAZOLE 0.75% CREAM 1 applic TOPICAL BID 05/29/22 06/15/22 [Metrocream 0.75%] Previous Rx's Medication Instructions Recorded Thiamine [Vitamin B-1] 100 mg PO BID-W/MEALS tab 02/20/22 dilTIAZem HCL [dilTIAZem HCL 24Hr 120 mg PO DAILY #30 cap 05/30/22 ER (CD)] Allergies Allergy/AdvReac Type Severity Reaction Status Date / Time No Known Allergies Allergy Verified 11/10/22 11:35 Review of Systems ROS Statement: Those systems with pertinent positive or pertinent negative responses have been documented in the HPI. ROS Other: All systems not noted in ROS Statement are negative. Past Medical History Past Medical History: Hypertension Additional Past Medical History / Comment(s): Pt states about 6 months ago he had a liver problem that caused ascities/had paracentesis, past fall with head injury/scalp bleed that caused acute blood loss anemia/transfused History of Any Multi-Drug Resistant Organisms: None Reported Past Surgical History: No Surgical Hx Reported Past Anesthesia/Blood Transfusion Reactions: No Reported Reaction Past Psychological History: Anxiety, Depression, Panic Disorder, PTSD Smoking Status: Current every day smoker Past Alcohol Use History: Daily, Heavy Past Drug Use History: Cocaine, Marijuana - Past Family History Father Family Medical History: Cancer, Diabetes Mellitus Additional Family Medical History / Comment(s): LUNG CANCER Mother Family Medical History: Hypertension Additional Family Medical History / Comment(s): ANXIEY AND PANIC ATTACKS Course Vital Signs 11/10/22 11:31 Temperature 98.6 F Pulse Rate 96 Respiratory 18 Rate Blood Pressure 159/92 O2 Sat by Pulse 97 Oximetry Disposition Clinical Impression: Wrist strain Disposition: HOME SELF-CARE Condition: Good Instructions (If sedation given, give patient instructions): Wrist Injury (ED) Is patient prescribed a controlled substance at d/c from ED?: No Referrals: Danny Soto DO [Doctor of Osteopathic Medicine] - 1-2 days Time of Disposition: 13:09
[2022-11-10] MEDS ORDERED: oxyCODONE-APAP 7.5-325MG 1 EACH TAB PO STA (13:03)
[2022-11-10] MEDS ORDERED: ACET/COD 300 MG/30 MG STARTER PACK 6 TAB BTL PO STA (13:07)
== END 2022-11-10 13:16 | disposition home or self-care (01) ==
LOC: EC 11:27
DX: S66.912A Strain of unspecified muscle, fascia and tendon at wrist and hand level, left hand, initial encounter (principal); I10 Essential (primary) hypertension; F41.9 Anxiety disorder, unspecified; F32.A Depression, unspecified; F17.200 Nicotine dependence, unspecified, uncomplicated; F12.90 Cannabis use, unspecified, uncomplicated; X50.9XXA Other and unspecified overexertion or strenuous movements or postures, initial encounter
CPT/HCPCS: 99283

== ENCOUNTER 2023-11-08 11:08 | Emergency (ER) | payer OTHER ==
[2023-11-08 11:40] VITALS: BP 155/76; PULSE 89; RESP 16; TEMP 98.2
--- NOTE | 2023-11-08 12:52 | ED ---
URI HPI - General Chief Complaint: Upper Respiratory Infection Stated Complaint: SOB Time Seen by Provider: 11/08/23 11:39 Source: patient, RN notes reviewed Mode of arrival: ambulatory Limitations: no limitations - History of Present Illness Initial Comments: 43-year-old male presents emergency department complaint cough and cold-like symptoms. Patient states has been sick for over a week. States had productive cough, increasing sinus, sore throat. Patient states she had reported fever. Patient states his cough is rectal phlegm, sometimes there is blood specks within the sputum. Denies any pleuritic pain. Denies any chest pain denies any abdominal pain. Has had some bloody noses also. Patient also adds that he bit his tongue and he has a large lump on the underside of the right side. - Related Data Home Medications Medication Instructions Recorded Confirmed Acetaminophen Tab [Tylenol Tab] 1,000 mg PO Q6H PRN 11/10/22 11/10/22 Fluticasone Nasal [place] [Flonase 2 spr EA NOSTRIL DAILY 11/10/22 11/10/22 Nasal [place]] amLODIPine [Norvasc] 5 mg PO DAILY 11/10/22 11/10/22 busPIRone HCl [Buspar] 10 mg PO BID 11/10/22 11/10/22 Previous Rx's Medication Instructions Recorded Ibuprofen [Motrin] 600 mg PO Q6HR PRN #20 tab 02/22/23 Amoxic-Pot Clav 875-125Mg 1 tab PO Q12HR #20 tab 11/08/23 [Augmentin 875-125] predniSONE 50 mg PO DAILY #5 tab 11/08/23 Allergies Allergy/AdvReac Type Severity Reaction Status Date / Time No Known Allergies Allergy Verified 11/08/23 11:28 Review of Systems ROS Statement: Those systems with pertinent positive or pertinent negative responses have been documented in the HPI. ROS Other: All systems not noted in ROS Statement are negative. Past Medical History Past Medical History: Hypertension Additional Past Medical History / Comment(s): Pt states about 6 months ago he had a liver problem that caused ascities/had paracentesis, past fall with head injury/scalp bleed that caused acute blood loss anemia/transfused History of Any Multi-Drug Resistant Organisms: None Reported Past Surgical History: No Surgical Hx Reported Past Anesthesia/Blood Transfusion Reactions: No Reported Reaction Past Psychological History: Anxiety, Depression, Panic Disorder, PTSD Smoking Status: Current every day smoker Past Alcohol Use History: Daily, Heavy Past Drug Use History: Marijuana - Past Family History Father Family Medical History: Cancer, Diabetes Mellitus Additional Family Medical History / Comment(s): LUNG CANCER Mother Family Medical History: Hypertension Additional Family Medical History / Comment(s): ANXIEY AND PANIC ATTACKS General Exam Limitations: no limitations General appearance: alert, in no apparent distress Head exam: Present: atraumatic, normocephalic, normal inspection Eye exam: Present: normal appearance, PERRL, EOMI. Absent: scleral icterus, conjunctival injection, periorbital swelling ENT exam: Present: mucous membranes moist. Absent: normal oropharynx (Large hematoma right side of the tongue on the underneath surface) Neck exam: Present: normal inspection, full ROM. Absent: tenderness, meningismus, lymphadenopathy Respiratory exam: Present: rhonchi. Absent: normal lung sounds bilaterally, respiratory distress, wheezes, rales, stridor Cardiovascular Exam: Present: regular rate, normal rhythm, normal heart sounds. Absent: systolic murmur, diastolic murmur, rubs, gallop, clicks Neurological exam: Present: alert Course Vital Signs 11/08/23 11:28 Temperature 98.2 F Pulse Rate 89 Respiratory 16 Rate Blood Pressure 155/76 O2 Sat by Pulse 97 Oximetry Medical Decision Making - Medical Decision Making Was pt. sent in by a medical professional or institution (, PA, ORNAMENTER, urgent care, hospital, or [place] health care facility...) When possible be specific @ -No Did you speak to anyone other than the patient for history (EMS, parent, family, police, friend...)? What history was obtained from this source @ -No Did you review nursing and triage notes (agree or disagree)? Why? @ -I reviewed and agree with nursing and triage notes Were old charts reviewed (outside hosp., previous admission, EMS record, old EKG, old radiological studies, urgent care reports/EKG's, [place] health [place] facility records)? Report findings @ -No old charts were reviewed Differential Diagnosis (chest pain, altered mental status, abdominal pain women, abdominal pain men, vaginal bleeding, weakness, fever, dyspnea, syncope, headache, dizziness, GI bleed, back pain, seizure, CVA, palpatations, mental health, musculoskeletal)? @ -[COVID 19, RSV, influenza, pneumonia, acute bronchitis, URI, this list is not all inclusive EKG interpreted by me (3pts min.). @ -As above X-rays interpreted by me (1pt min.). @ -[Chest x-ray is no pneumothorax or infiltrate CT interpreted by me (1pt min.). @ -None done U/S interpreted by me (1pt. min.). @ -None done What testing was considered but not performed or refused? (CT, X-rays, U/S, labs)? Why? @ -None What meds were considered but not given or refused? Why? @ -None Did you discuss the management of the patient with other professionals (horace rodriguez i.e. , PA, ORNAMENTER, lab, RT, psych nurse, social services assistant, technical assoc, teacher, fundraising officer, caser shoe parts)? Give summary @ -No Was smoking cessation discussed for >3mins.? @ -No Was critical care preformed (if so, how long)? @ -No Were there social determinants of health that impacted care today? How? (Homelessness, low income, unemployed, alcoholism, drug addiction, transportation, low edu. Level, literacy, decrease access to med. care, assisted, rehab)? @ -No Was there de-escalation of care discussed even if they declined (Discuss DNR or withdrawal of care, Hospice)? DNR status @ -No What co-morbidities impacted this encounter? (DM, HTN, Smoking, COPD, CAD, Cancer, CVA, ARF, Chemo, Hep., AIDS, mental health diagnosis, sleep apnea, morbid obesity)? @ -None Was patient admitted / discharged? Hospital course, mention meds given and route, prescriptions, significant lab abnormalities, going to OR and other pertinent info. @ -Discharged. Patient has been sick for over a week patient has symptoms of tracheobronchitis. Patient was started on Augmentin, steroids return. Return precautions were discussed Undiagnosed new problem with uncertain prognosis? @ -No Drug Therapy requiring intensive monitoring for toxicity (Heparin, Nitro, Insulin, Cardizem)? @ -No Were any procedures done? @ -No Diagnosis/symptom? @ -Tracheobronchitis Acute, or Chronic, or Acute on Chronic? @ -[Acute Uncomplicated (without systemic symptoms) or Complicated (systemic symptoms)? @ -Uncomplicated Side effects of treatment? @ -No Exacerbation, Progression, or Severe Exacerbation? @ -No Poses a threat to life or bodily function? How? (Chest pain, USA, [place], pneumonia, PE, COPD, DKA, ARF, appy, cholecystitis, CVA, Diverticulitis, Homicidal, Suicidal, threat to staff... and all critical care pts) @ -No - Lab Data Lab Results 11/08/23 Range/Units 11:51 Influenza Type A (PCR) Not Detected (Not Detectd) Influenza Type B (PCR) Not Detected (Not Detectd) RSV (PCR) Not Detected (Not Detectd) SARS-CoV-2 (PCR) Not Detected (Not Detectd) Disposition Clinical Impression: Tracheobronchitis Disposition: HOME SELF-CARE Condition: Stable Instructions (If sedation given, give patient instructions): Upper Respiratory Infection (ED) Additional Instructions: Please return to the Emergency Department if symptoms worsen or any other concerns. Prescriptions: Amoxic-Pot Clav 875-125Mg [Augmentin 875-125] 1 tab PO Q12HR #20 tab predniSONE 50 mg PO DAILY #5 tab Is patient prescribed a controlled substance at d/c from ED?: No Referrals: Michell Lara [Primary Care Provider] - 1-2 days Time of Disposition: 13:14
--- NOTE | 2023-11-08 13:00 | XR ---
EXAMINATION TYPE: XR chest 2V DATE OF EXAM: 11/08/2023 12:47 PM CLINICAL INDICATION:Male, 43 years old with history of cough; [facility] COMPARISON: Chest radiographs from 05/29/2022 TECHNIQUE: XR chest 2V Frontal and lateral views of the chest. FINDINGS: Lungs/Pleura: There is no evidence of pleural effusion, focal consolidation, or pneumothorax. Pulmonary vascularity: Unremarkable. Heart/mediastinum: Cardiomediastinal silhouette is unremarkable. Musculoskeletal: No acute osseous pathology. Other findings: None IMPRESSION: No acute cardiopulmonary disease/process.
== END 2023-11-08 13:23 | disposition home or self-care (01) ==
LOC: EC 11:08
DX: J40 Bronchitis, not specified as acute or chronic (principal); I10 Essential (primary) hypertension; F32.A Depression, unspecified; F41.9 Anxiety disorder, unspecified; F17.200 Nicotine dependence, unspecified, uncomplicated; F12.90 Cannabis use, unspecified, uncomplicated; Z79.899 Other long term (current) drug therapy; Z20.822 Contact with and (suspected) exposure to COVID-19
CPT/HCPCS: 71046; 87636; 99285

== ENCOUNTER 2024-03-07 23:49 | Emergency (ER) | payer OTHER ==
[2024-03-08 00:15] LABS: Basophils # (A) 0.1 k/uL (0-0.2); Basophils % (A) 1 %; Eosinophils # (A) 0.2 k/uL (0-0.7); Eosinophils % (A) 2 %; HCT 45.3 % (39.0-53.0); HGB 14.2 gm/dL (13.0-17.5); Lymphocytes % (A) 23 %; MCH 34.2 pg (25.0-35.0); MCHC 31.3 g/dL (31.0-37.0); Macrocytosis Marked; Mean Platelet Volume 10.3; Monocytes % (A) 11 %; Neutrophils % (A) 59 %; RBC 4.14 m/uL (4.30-5.90); RDW 14.3 % (11.5-15.5); WBC 8.5 k/uL (3.8-10.6)
[2024-03-08 00:18] LABS: MCV 109.4 fL (80.0-100.0); Platelet Count 62 k/uL (150-450)
[2024-03-08 00:24] LABS: INR 1.4 (<1.2); Partial Thromboplastin Time 26.8 sec (22.0-30.0); Prothrombin Time 14.4 sec (10.0-12.5)
[2024-03-08 00:25] LABS: ALT 47 U/L (4-49); AST 130 U/L (17-59); African American GFR (CKD) >90 (>60 ml/min/1.73 sqM); Albumin 3.7 g/dL (3.5-5.0); Alkaline Phosphatase 135 U/L (38-126); Anion Gap 13 mmol/L; Blood Urea Nitrogen 13 mg/dL (9-20); Calcium 8.6 mg/dL (8.4-10.2); Carbon Dioxide 20 mmol/L (22-30); Chloride 107 mmol/L (98-107); Glucose 116 mg/dL (74-99); Non-African American GFR(CKD) >90 (>60 ml/min/1.73 sqM); Potassium 3.5 mmol/L (3.5-5.1); Sodium 140 mmol/L (137-145); Total Bilirubin 2.2 mg/dL (0.2-1.3); Total Protein 7.7 g/dL (6.3-8.2)
--- NOTE | 2024-03-08 00:36 | XR ---
EXAMINATION TYPE: XR chest 2V DATE OF EXAM: 03/08/2024 COMPARISON: 11/08/2023 INDICATION: Epigastric pain and GI bleed TECHNIQUE: Frontal and lateral views of the chest are obtained. FINDINGS: The heart size is normal. The pulmonary vasculature is normal. The lungs are clear. IMPRESSION: 1. No acute pulmonary process.
--- NOTE | 2024-03-08 01:02 | ED ---
General Adult HPI - General Chief complaint: GI Bleed Stated complaint: Throwing up Blood Time Seen by Provider: 03/08/24 01:01 Source: patient Mode of arrival: ambulatory Limitations: no limitations - History of Present Illness Initial comments: Jerome a 43-year-old male with a history of alcohol abuse patient reports that he drinks 3-4 tall cans of beer daily and hard alcohol on rare occasions the patient states that he has withdrawal symptoms if he goes a number of hours without drinking. Patient presents the ER today for evaluation of vomiting b lood. Patient reports that he was asleep he woke up feeling nauseated vomited and noted blood coming from his mouth and nose. Did not have a bloody nose at the time. He states he since his continue to feel nauseated and when he burps blood will come up. No coughing up blood. Patient does have a history of GI bleeding in the past he had a endoscopy in 2021 with findings of antral gastritis no comment on any varices at that time. - Related Data Home Medications Medication Instructions Recorded Confirmed Acetaminophen Tab [Tylenol Tab] 1,000 mg PO Q6H PRN 11/10/22 11/10/22 Fluticasone Nasal [place] [Flonase 2 spr EA NOSTRIL DAILY 11/10/22 11/10/22 Nasal [place]] amLODIPine [Norvasc] 5 mg PO DAILY 11/10/22 11/10/22 busPIRone HCl [Buspar] 10 mg PO BID 11/10/22 11/10/22 Previous Rx's Medication Instructions Recorded Ibuprofen [Motrin] 600 mg PO Q6HR PRN #20 tab 02/22/23 Amoxic-Pot Clav 875-125Mg 1 tab PO Q12HR #20 tab 11/08/23 [Augmentin 875-125] predniSONE 50 mg PO DAILY #5 tab 11/08/23 Allergies Allergy/AdvReac Type Severity Reaction Status Date / Time No Known Allergies Allergy Verified 11/08/23 11:28 Review of Systems ROS Statement: Those systems with pertinent positive or pertinent negative responses have been documented in the HPI. ROS Other: All systems not noted in ROS Statement are negative. Past Medical History Past Medical History: Hypertension Additional Past Medical History / Comment(s): Hx of liver problem that caused ascities/had paracentesis, past fall with head injury/scalp bleed that caused acute blood loss anemia/transfused History of Any Multi-Drug Resistant Organisms: None Reported Past Surgical History: No Surgical Hx Reported Past Anesthesia/Blood Transfusion Reactions: No Reported Reaction Past Psychological History: Anxiety, Depression, Panic Disorder, PTSD Smoking Status: Current every day smoker Past Alcohol Use History: Daily, Heavy Past Drug Use History: Marijuana - Past Family History Father Family Medical History: Cancer, Diabetes Mellitus Additional Family Medical History / Comment(s): LUNG CANCER Mother Family Medical History: Hypertension Additional Family Medical History / Comment(s): ANXIEY AND PANIC ATTACKS General Exam - General Exam Comments Initial Comments: Physical Exam GENERAL: Patient is well-developed and well-nourished. Patient is nontoxic and well-hydrated and is in no distress. HENT: Normocephalic, Atraumatic. EYES: PERRL, EOMI PULMONARY: Unlabored respirations. CARDIOVASCULAR: RRR Warm and well perfused extremities ABDOMEN: Non-distended SKIN: No rashes or bruising : Deferred NEUROLOGIC: Alert and oriented Normal speech Normal gait MUSCULOSKELETAL: Moving all extremities with no apparent injury PSYCHIATRIC: No SI/HI Limitations: no limitations Course Vital Signs 03/07/24 03/08/24 23:51 02:17 Temperature 98.4 F 97.8 F Pulse Rate 94 74 Respiratory 20 18 Rate Blood Pressure 144/88 150/96 O2 Sat by Pulse 99 96 Oximetry Medical Decision Making - Medical Decision Making Was pt. sent in by a medical professional or institution (ANTHONY Mckay, CENTRAL OFFICE TECHNICIAN, urgent care, hospital, or jail...) When possible be specific @ -No Did you speak to anyone other than the patient for history (EMS, parent, family, police, friend...)? What history was obtained from this source @ -Family at bedside Did you review nursing and triage notes (agree or disagree)? Why? @ -I reviewed and agree with nursing and triage notes Were old charts reviewed (outside hosp., previous admission, EMS record, old EKG, old radiological studies, urgent care reports/EKG's, jail records)? Report findings @ -Previous admissions, labs and GI scopes were reviewed Differential Diagnosis (chest pain, altered mental status, abdominal pain women, abdominal pain men, vaginal bleeding, weakness, fever, dyspnea, syncope, headache, dizziness, GI bleed, back pain, seizure, CVA, palpatations, mental health)? @ -MDM differential GI bleeding EKG interpreted by me (3pts min.). @ -As above X-rays interpreted by me (1pt min.). @ -None done CT interpreted by me (1pt min.). @ -None done U/S interpreted by me (1pt. min.). @ -None done What testing was considered but not performed or refused? (CT, X-rays, U/S, labs)? Why? @ -None What meds were considered but not given or refused? Why? @ -None Did you discuss the management of the patient with other professionals (professionals i.e. Dr., PA, CENTRAL OFFICE TECHNICIAN, lab, RT, psych nurse, social service technician, dispute specialist, teacher, international first officer, comp field case manager)? Give summary @ -Discussed with transfer GI physician Dr. Coppola Was smoking cessation discussed for >3mins.? @ -No Was critical care preformed (if so, how long)? @ -Yes, 35 minutes Were there social determinants of health that impacted care today? How? (Homelessness, low income, unemployed, alcoholism, drug addiction, transportation, low edu. Level, literacy, decrease access to med. care, senior living, rehab)? @ -Alcoholism Was there de-escalation of care discussed even if they declined (Discuss DNR or withdrawal of care, Hospice)? DNR status @ -No What co-morbidities impacted this encounter? (DM, HTN, Smoking, COPD, CAD, Cancer, CVA, ARF, Chemo, Hep., AIDS, mental health diagnosis, sleep apnea, morbid obesity)? @ -Alcohol abuse Was patient admitted / discharged? Hospital course, mention meds given and route, prescriptions, significant lab abnormalities, going to OR and other pertinent info. @ -Transfer to outside facility The patient was seen and evaluated, this is an alcoholic male with hematemesis consistent with upper GI bleeding. He has baseline with approximately 2 to 300 cc of dark blood. Bilateral IVs were obtained, blood was obtained, IV Protonix, octreotide and Rocephin were ordered. Patient care was discussed with transfer team at [facility] who connected me with a GI physician Dr. Coppola who accepted the transfer for GI evaluation. Patient remained awake alert and oriented throughout his stay in the ER. Undiagnosed new problem with uncertain prognosis? @ -Yes, upper GI bleeding and alcoholic Drug Therapy requiring intensive monitoring for toxicity (Heparin, Nitro, Insulin, Cardizem)? @ -No Were any procedures done? @ -No Diagnosis/symptom? @ -Upper GI bleeding and alcoholic Acute, or Chronic, or Acute on Chronic? @ -Acute Uncomplicated (without systemic symptoms) or Complicated (systemic symptoms)? @ -Default Side effects of treatment? @ -No Exacerbation, Progression, or Severe Exacerbation? @ -No Poses a threat to life or bodily function? How? (Chest pain, [place], NM, pneumonia, PE, COPD, DKA, ARF, appy, cholecystitis, CVA, Diverticulitis, Homicidal, Suicidal, threat to staff... and all critical care pts) @ -Yes, can hemorrhage - Lab Data Result diagrams: 03/08/24 00:00 03/08/24 00:00 Lab Results 03/08/24 03/08/24 03/08/24 Range/Units 00:00 00:00 00:00 WBC 8.5 (3.8-10.6) k/uL RBC 4.14 L (4.30-5.90) m/uL Hgb 14.2 (13.0-17.5) gm/dL Hct 45.3 (39.0-53.0) % MCV 109.4 H (80.0-100.0) fL MCH 34.2 (25.0-35.0) pg MCHC 31.3 (31.0-37.0) g/dL RDW 14.3 (11.5-15.5) % Plt Count 62 L (150-450) k/uL MPV 10.3 Neutrophils % 59 % Lymphocytes % 23 % Monocytes % 11 % Eosinophils % 2 % Basophils % 1 % Neutrophils # 5.0 (1.3-7.7) k/uL Lymphocytes # 2.0 (1.0-4.8) k/uL Monocytes # 1.0 (0-1.0) k/uL Eosinophils # 0.2 (0-0.7) k/uL Basophils # 0.1 (0-0.2) k/uL Macrocytosis Marked A PT 14.4 H (10.0-12.5) sec INR 1.4 H (<1.2) APTT 26.8 (22.0-30.0) sec Sodium 140 (137-145) mmol/L Potassium 3.5 (3.5-5.1) mmol/L Chloride 107 (98-107) mmol/L Carbon Dioxide 20 L (22-30) mmol/L Anion Gap 13 mmol/L BUN 13 (9-20) mg/dL Creatinine 0.85 (0.66-1.25) mg/dL Est GFR (CKD-EPI)AfAm >90 (>60 ml/min/1.73 sqM) Est GFR (CKD-EPI)NonAf >90 (>60 ml/min/1.73 sqM) Glucose 116 H (74-99) mg/dL Calcium 8.6 (8.4-10.2) mg/dL Total Bilirubin 2.2 H (0.2-1.3) mg/dL AST 130 H (17-59) U/L ALT 47 (4-49) U/L Alkaline Phosphatase 135 H (38-126) U/L Total Protein 7.7 (6.3-8.2) g/dL Albumin 3.7 (3.5-5.0) g/dL Serum Alcohol mg/dL Blood Type Blood Type Recheck Bld Type Recheck Status Antibody Screen Spec Expiration Date 03/08/24 03/08/24 Range/Units 00:00 01:55 WBC (3.8-10.6) k/uL RBC (4.30-5.90) m/uL Hgb (13.0-17.5) gm/dL Hct (39.0-53.0) % MCV (80.0-100.0) fL MCH (25.0-35.0) pg MCHC (31.0-37.0) g/dL RDW (11.5-15.5) % Plt Count (150-450) k/uL MPV Neutrophils % % Lymphocytes % % Monocytes % % Eosinophils % % Basophils % % Neutrophils # (1.3-7.7) k/uL Lymphocytes # (1.0-4.8) k/uL Monocytes # (0-1.0) k/uL Eosinophils # (0-0.7) k/uL Basophils # (0-0.2) k/uL Macrocytosis PT (10.0-12.5) sec INR (<1.2) APTT (22.0-30.0) sec Sodium (137-145) mmol/L Potassium (3.5-5.1) mmol/L Chloride (98-107) mmol/L Carbon Dioxide (22-30) mmol/L Anion Gap mmol/L BUN (9-20) mg/dL Creatinine (0.66-1.25) mg/dL Est GFR (CKD-EPI)AfAm (>60 ml/min/1.73 sqM) Est GFR (CKD-EPI)NonAf (>60 ml/min/1.73 sqM) Glucose (74-99) mg/dL Calcium (8.4-10.2) mg/dL Total Bilirubin (0.2-1.3) mg/dL AST (17-59) U/L ALT (4-49) U/L Alkaline Phosphatase (38-126) U/L Total Protein (6.3-8.2) g/dL Albumin (3.5-5.0) g/dL Serum Alcohol 90 mg/dL Blood Type A Positive Blood Type Recheck A Pos Bld Type Recheck Status No Antibody Screen NEGATIVE Spec Expiration Date 03/11/20242299 Disposition Clinical Impression: Upper GI bleeding, Alcohol abuse Disposition: OTHER INSTITUTION NOT DEFINED Referrals: Michell Lara [Primary Care Provider] - 1-2 days - Out of Hospital Transfer - Req. Specs Out of Hospital Transfer - Requested Specifics: Other Emergency Center ([facility])
[2024-03-08] MEDS ORDERED: cefTRIAXone IN SWFI 1,000 MG/10 ML SYRINGE IVP ONE (01:13)
[2024-03-08] MEDS: SODIUM CHLORIDE 0.9% 1,000 ML IV SCH (01:31)
[2024-03-08] MEDS: LORazepam 2 MG/ML INJ IV STA (01:31)
[2024-03-08] MEDS: PANTOPRAZOLE 40 MG/10 ML VIAL IVP ONE (01:31)
[2024-03-08] MEDS: MORPHINE SULFATE 4 MG/ML SYRINGE IVP STA (02:05)
[2024-03-08] MEDS: OCTREOTIDE 500 MCG in SODIUM CHLORIDE 0.9% 250 ML IV ONE (02:09)
[2024-03-08] MEDS: cefTRIAXone IN SWFI 1,000 MG/10 ML SYRINGE IVP ONE (02:10)
[2024-03-08 03:14] VITALS: BP 150/96; PULSE 74; RESP 18; TEMP 97.8
== END 2024-03-08 02:27 | disposition other institution (70) ==
LOC: EC 23:49
DX: K92.2 Gastrointestinal hemorrhage, unspecified (principal); F10.10 Alcohol abuse, uncomplicated; F17.200 Nicotine dependence, unspecified, uncomplicated
CPT/HCPCS: 36415; 86900; 86901; 80053; 85025; 85610; 85730; 86850; 87040; 71046; 99291; 96365; 96375 ×4; 96361; G0480; J2060; J2270; J2354; J0696; C9113; 80320

== ENCOUNTER → 2024-03-28 | Outpatient (CLI) | payer OTHER ==
[2024-03-28 10:32] LABS: INR 1.4 (<1.2); Partial Thromboplastin Time 27.5 sec (22.0-30.0); Prothrombin Time 14.3 sec (10.0-12.5)
[2024-03-28 18:15] LABS: Basophils # (A) 0.07 X 10*3/uL (0.00-0.10); Eosinophils # (A) 0.11 X 10*3/uL (0.04-0.35); Eosinophils % (A) 1.6 %; HCT 39.7 % (39.6-50.0); HGB 12.6 g/dL (13.0-17.0); Immature Grans, Automated 0 %; Lymphocytes # (A) 1.39 X 10*3/uL (0.90-5.00); MCH 34.1 pg (27.0-32.0); MCHC 31.7 g/dL (32.0-37.0); MCV 107.6 FL (80.0-97.0); Mean Platelet Volume 12.1 FL (9.5-12.2); Monocytes % (A) 18.7 %; NRBC Per 100 WBC 0 X 10*3/uL (0.00-0.01); Neutrophils # (A) 4.08 X 10*3/uL (1.80-7.70); Neutrophils % (A) 58.7 %; Platelet Count 93 X 10*3/uL (140-440); RBC 3.69 X 10*6/uL (4.40-5.60); RDW 14.6 % (11.5-14.5); WBC 6.95 X 10*3/uL (4.50-10.00)
[2024-03-28 18:51] LABS: Hepatitis A Antibody IgM Nonreactive (Nonreactive); Hepatitis B Core IgM Nonreactive (Nonreactive); Hepatitis B Surface Antigen Nonreactive (Nonreactive); Hepatitis C IgG Antibody Nonreactive (Nonreactive)
[2024-03-28 19:04] LABS: ALT 34 U/L (10-49); AST 76 U/L (14-35); Albumin 3.6 g/dL (3.8-4.9); Albumin/Globulin Ratio 1.06 Ratio (1.60-3.17); Alkaline Phosphatase 122 U/L (41-126); BUN/Creat Ratio 14.22 Ratio (12.00-20.00); Blood Urea Nitrogen 12.8 mg/dL (9.0-27.0); Calcium 9.2 mg/dL (8.7-10.3); Carbon Dioxide 21.6 mmol/L (21.6-31.8); Chloride 107 mmol/L (96-109); Globulin 3.4 g/dL (1.6-3.3); Glucose 112 mg/dL (70-110); Potassium 4.4 mmol/L (3.5-5.5); Sodium 141 mmol/L (135-145); Total Bilirubin 0.8 mg/dL (0.3-1.2)
== END | disposition home or self-care (01) ==
LOC: LABWHC1 09:45
PROVIDERS: ATTEND Internal Medicine Gastroenterology
DX: K70.30 Alcoholic cirrhosis of liver without ascites (principal)
CPT/HCPCS: 36415; 80053; 80074; 82105; 82140; 85025; 85610; 85730

== ENCOUNTER → 2024-04-24 | Outpatient (CLI) | payer OTHER ==
--- NOTE | 2024-04-25 22:18 | US ---
EXAMINATION TYPE: US liver DATE OF EXAM: 04/24/2024 COMPARISON: US 05/29/2022 CLINICAL INDICATION: Male, 43 years old with history of K70.30 ALCOHOLIC CIRRHOSIS OF LIVER WITHOUT A SCITE; Alcoholic cirrhosis per order. TECHNIQUE: Multiple sonographic images of the right upper quadrant are obtained. FINDINGS: EXAM MEASUREMENTS: Liver Length: 20.3 cm Gallbladder Wall: 0.34 cm CBD: 0.29 cm Right Kidney: 13.7 x 5.6 x 5.1 cm BUSINESS OBJECTS CONSULTANT NOTES: Exam is limited due to gas. Pancreas: Portion of the tail was obscured. Liver: *Appears coarse and enlarged. Gallbladder: Appears distended measuring 10.0 cm in length. Fold seen. Evidence for sonographic Hightower's sign: No CBD: Portions seen appear wnl Right Kidney: Enlarged. No hydronephrosis or masses seen IMPRESSION: 1. Hepatomegaly. Mild fatty infiltration is present within the liver.
== END | disposition home or self-care (01) ==
LOC: RADUSWWP 08:29
PROVIDERS: ATTEND Internal Medicine Gastroenterology
DX: K70.30 Alcoholic cirrhosis of liver without ascites (principal); K76.0 Fatty (change of) liver, not elsewhere classified
CPT/HCPCS: 76705

== ENCOUNTER → 2024-05-03 | Outpatient (CLI) | payer OTHER ==
[2024-05-03 15:32] LABS: Basophils # (A) 0.05 X 10*3/uL (0.00-0.10); Basophils % (A) 0.8 %; Eosinophils # (A) 0.07 X 10*3/uL (0.04-0.35); Eosinophils % (A) 1.1 %; HCT 37.2 % (39.6-50.0); HGB 12.1 g/dL (13.0-17.0); Immature Platelet Fraction 12.2 % (1.1-6.1); Lymphocytes # (A) 1.62 X 10*3/uL (0.90-5.00); Lymphocytes % (A) 25.5 %; MCH 32.9 pg (27.0-32.0); MCHC 32.5 g/dL (32.0-37.0); MCV 101.1 FL (80.0-97.0); Mean Platelet Volume 12.7 FL (9.5-12.2); Monocytes # (A) 0.97 X 10*3/uL (0.20-1.00); Monocytes % (A) 15.3 %; NRBC Per 100 WBC 0 X 10*3/uL (0.00-0.01); Neutrophils # (A) 3.61 X 10*3/uL (1.80-7.70); Neutrophils % (A) 56.8 %; Platelet Count 50 X 10*3/uL (140-440); RBC 3.68 X 10*6/uL (4.40-5.60); RDW 20.4 % (11.5-14.5); WBC 6.35 X 10*3/uL (4.50-10.00)
[2024-05-03 15:41] LABS: ALT 35 U/L (10-49); AST 86 U/L (14-35); Albumin 3.9 g/dL (3.8-4.9); Albumin/Globulin Ratio 1.08 Ratio (1.60-3.17); Alkaline Phosphatase 140 U/L (41-126); BUN/Creat Ratio 13.33 Ratio (12.00-20.00); Carbon Dioxide 21.8 mmol/L (21.6-31.8); Chloride 103 mmol/L (96-109); Globulin 3.6 g/dL (1.6-3.3); Glucose 101 mg/dL (70-110); Potassium 4.1 mmol/L (3.5-5.5); Sodium 138 mmol/L (135-145); Total Bilirubin 1.1 mg/dL (0.3-1.2); Total Protein 7.5 g/dL (6.2-8.2)
== END | disposition home or self-care (01) ==
LOC: LABWHC1 12:32
PROVIDERS: ATTEND Internal Medicine Gastroenterology
DX: K70.30 Alcoholic cirrhosis of liver without ascites (principal)
CPT/HCPCS: 36415; 80053; 85025

== ENCOUNTER → 2024-07-11 | Outpatient (CLI) | payer OTHER ==
--- NOTE | 2024-07-11 18:29 | XR ---
EXAMINATION TYPE: XR knee complete LT DATE OF EXAM: 07/11/2024 COMPARISON: None HISTORY: Pain TECHNIQUE: 3 view left knee FINDINGS: No acute fracture or dislocation evident. Joint spaces are preserved. No Significant Joint effusion. Follow up exams can be performed 7-10 days from acute trauma for continued pain. IMPRESSION: 1. No acute osseous abnormality left knee [facility], , 07/11/2024 6:26 PM
== END | disposition home or self-care (01) ==
LOC: RADXRMAIN 12:02
PROVIDERS: ATTEND Internal Medicine
DX: M25.562 Pain in left knee (principal)

== ENCOUNTER → 2024-07-11 | Outpatient (CLI) | payer OTHER ==
[2024-07-11 15:32] LABS: Basophils # (A) 0.06 X 10*3/uL (0.00-0.10); Basophils % (A) 0.9 %; Eosinophils # (A) 0.06 X 10*3/uL (0.04-0.35); Eosinophils % (A) 0.9 %; HCT 39.5 % (39.6-50.0); HGB 12.9 g/dL (13.0-17.0); Lymphocytes # (A) 1.52 X 10*3/uL (0.90-5.00); Lymphocytes % (A) 21.7 %; MCH 34.5 pg (27.0-32.0); MCHC 32.7 g/dL (32.0-37.0); MCV 105.6 FL (80.0-97.0); Mean Platelet Volume 13.3 FL (9.5-12.2); Monocytes # (A) 1.25 X 10*3/uL (0.20-1.00); Monocytes % (A) 17.9 %; NRBC Per 100 WBC 0 X 10*3/uL (0.00-0.01); Neutrophils # (A) 4.09 X 10*3/uL (1.80-7.70); Neutrophils % (A) 58.3 %; Platelet Count 40 X 10*3/uL (140-440); RBC 3.74 X 10*6/uL (4.40-5.60); RDW 17.4 % (11.5-14.5)
== END | disposition home or self-care (01) ==
LOC: LABWHC1 12:24
PROVIDERS: ATTEND Internal Medicine
DX: S80.912A Unspecified superficial injury of left knee, initial encounter (principal); M25.462 Effusion, left knee; X58.XXXA Exposure to other specified factors, initial encounter
CPT/HCPCS: 36415; 84550; 85025

== ENCOUNTER → 2024-07-20 | Outpatient (CLI) | payer OTHER ==
--- NOTE | 2024-07-20 20:10 | US ---
EXAMINATION TYPE: US liver DATE OF EXAM: 07/20/2024 COMPARISON: US 04/24/2024 CLINICAL INDICATION: Male, 44 years old with history of K70.30 ALCOHOLIC CIRRHOSIS OF LIVER WITHOUT A SCITE; Alcoholic cirrhosis. TECHNIQUE: Grayscale and color Doppler imaging of the right upper quadrant. FINDINGS: EXAM MEASUREMENTS: Liver Length: 20.87 cm Gallbladder Wall: 0.23 cm CBD: 0.29 cm Right Kidney: 13.6 x 7.4 x 4.9 cm GEOPHYSICAL PROSPECTING PERMIT AGENT NOTES: Limited due to gas. Pancreas: Limited visibility. Liver: Enlarged and coarse in echotexture. Gallbladder: *Internal debris seen within when patient turns from LLD to supine. Gallbladder measur es 10.0 cm. in length*. Evidence for sonographic Hightower's sign: No CBD: Appears wnl Right Kidney: Enlarged. IMPRESSION: 1. Some debris may be within the gallbladder. 2. Hepatomegaly [facility], Workstation: [facility], 07/20/2024 8:08 PM
== END | disposition home or self-care (01) ==
LOC: RADUSWWP 11:34
PROVIDERS: ATTEND Nurse Practitioner Family
DX: K70.30 Alcoholic cirrhosis of liver without ascites
CPT/HCPCS: 76705